=== PATIENT | male | born 1940 | race Hispanic/Latino ===

== ENCOUNTER 2019-03-04 08:48 | Inpatient (IN) | payer MEDICARE ==
[2019-03-01 12:10] LABS: BASOPHILS % 0.2 % (0.0-1.0); EOSINOPHILS # (AUTO) 0.1 (0.0-0.4); HEMATOCRIT 34.2 % (38.2-49.6); HEMOGLOBIN 11.6 g/dL (14.0-18.0); LYMPHOCYTES # (AUTO) 1.6 (1.0-3.2); LYMPHOCYTES % 32.1 % (18.0-39.1); MEAN CORPUSCULAR HEMOGLOBIN 33.2 pg (28-32); MEAN CORPUSCULAR HGB CONC 33.9 g/dL (31-35); MONOCYTES # (AUTO) 0.7 (0.2-0.8); MONOCYTES % 13.1 % (4.4-11.3); NEUTROPHILS # (AUTO) 2.6 (2.1-6.9); NEUTROPHILS % 52.4 % (38.7-80.0); PLATELET COUNT 300 x10e3/uL (140-360); RED BLOOD COUNT 3.49 x10e6/uL (4.3-5.7); RED CELL DISTRIBUTION WIDTH 12.9 % (11.7-14.4)
--- NOTE | 2019-03-01 15:15 | Diagnostic Imaging Report ---
EXAMINATION: CHEST 2 VIEWS INDICATION: Preoperative COMPARISON: None FINDINGS: TUBES and LINES: None. LUNGS: The lungs are well-inflated. Mild patchy opacity at the left lung base. Likely biapical emphysematous changes. PLEURA: No pleural effusion or pneumothorax. HEART AND MEDIASTINUM: The cardiomediastinal silhouette is normal in size. Atherosclerotic calcifications involve the thoracic aorta. BONES AND SOFT TISSUES: No acute fracture. Likely posttraumatic deformity of the left fifth posterior rib. Degenerative changes of the visualized spine. UPPER ABDOMEN: No free air under the diaphragm. IMPRESSION: No focal pneumonia or pulmonary edema. Patchy opacity at the left lung base, likely subsegmental atelectasis. Signed by: Cameron Snyder MD on 03/01/2019 3:12 PM
[~2019-03-04] VITALS: Ht 175.3 cm; Wt 79.8 kg
[~2019-03-04 08:48] MED LIST: ARICEPT5 MG PO; ASP325TEC PO; AZITHROMYCIN500 MG PO; Albuterol Sulf NEB; CEFUROXIME500 MG PO; CRESTOR10 MG PO; DOXAZOSIN MESYLA2 MG PO; Ipratropium Bromide NEB; MULTI-VITAMIN1 EACH; NORVASC5 MG PO; OMEPRAZOLE20 MG; PANTOPRAZOLE SO40 MG PO; PEPCID; RANITIDINE HCL150 MG PO; ST. JOSEPH ASPI81 MG PO; SYMBICORT 80-10.2 GM INH; ULTRAM 50MG50 MG PO; VITAMIN D1000 UNI1 PO; XARELTO20 MG PO; ZANTAC; ZOCOR20 MG PO; [UNRECOGNIZED DRUG - OTHER]
--- OUTSIDE RECORDS SUMMARY | 2019-03-04 08:51 | XMS REPORT ---
Author Author Danuta Whitmore Organization [employer] Address Unknown Phone Unavailable Care Team Providers Care Contractor Field Hauling Name Role Phone Danuta Whitmore CP Unavailable Allergies, Adverse Reactions, Alerts Substance Reaction Event Type Sulfur Info Not Available Drug Allergy Problems Problem Type Condition Code Onset Dates Condition Status Problem IPF (idiopathic pulmonary fibrosis) J84.112 Active Assessment Rheumatoid arthritis of multiple sites without organ or system involvement with positive rheumatoid factor M05.79 Active Problem Rheumatoid arthritis of multiple sites without organ or system involvement with positive rheumatoid factor M05.79 Active Assessment Counseling NOS Z71.9 Active Assessment High risk medication use Z79.899 Active Assessment IPF (idiopathic pulmonary fibrosis) J84.112 Active Medications Medication Code System Code Instructions Start Date End Date Status Dosage Multivitamin Adult [facility] 85679086351 - Orally Active not defined Hydroxychloroquine Sulfate [facility] 41202398961 200 MG Orally Once a day January 13, 2018 Active 1.5 tablet with food or milk Pantoprazole Sodium [facility] 36422640543 40 MG Orally Once a day Active 1 tablet Sucralfate [facility] 40576008355 1 GM Orally Twice a day Active 1 tablet at bedtime on an empty stomach before meals Ranitidine HCl [facility] 99711415012 150 MG Orally Once a day Active 1 capsule at bedtime Tamsulosin HCl [facility] 39868117095 0.4 MG Orally Once a day Active 1 capsule Results No Known Results Summary Purpose [employer] Submission
--- OUTSIDE RECORDS SUMMARY | 2019-03-04 08:51 | XMS REPORT ---
Author Author Danuta Whitmore Organization [employer] Address Unknown Phone Unavailable Care Team Providers Care Weblogic Administrator Name Role Phone Danuta Whitmore CP Unavailable Allergies, Adverse Reactions, Alerts Substance Reaction Event Type Sulfur Info Not Available Drug Allergy Problems Problem Type Condition Code Onset Dates Condition Status Assessment Anemia of chronic disease D63.8 Active Problem Rheumatoid arthritis of multiple sites without organ or system involvement with positive rheumatoid factor M05.79 Active Problem IPF (idiopathic pulmonary fibrosis) J84.112 Active Problem Anemia of chronic disease D63.8 Active Assessment IPF (idiopathic pulmonary fibrosis) J84.112 Active Assessment Counseling NOS Z71.9 Active Assessment Rheumatoid arthritis of multiple sites without organ or system involvement with positive rheumatoid factor M05.79 Active Assessment High risk medication use Z79.899 Active Medications Medication Code System Code Instructions Start Date End Date Status Dosage Ranitidine HCl [facility] 41924404719 150 MG Orally Once a day Active 1 capsule at bedtime Multivitamin Adult [facility] 05903444328 - Orally Active not defined Sucralfate ND 13288016625 1 GM Orally Twice a day Active 1 tablet at bedtime on an empty stomach before meals Tamsulosin HCl ND 14753884990 0.4 MG Orally Once a day Active 1 capsule Hydroxychloroquine Sulfate [facility] 42921542414 200 MG Orally Once a day Jul 08, 2018 Active 1.5 tablet with food or milk Pantoprazole Sodium [facility] 77440675371 40 MG Orally Once a day Active 1 tablet Vital Signs Date/Time: March 10, 2018 Weight 164.0 lbs Blood Pressure Diastolic 77 mm Hg Blood Pressure Systolic 124 mm Hg Results No Known Results Summary Purpose [employer] Submission
--- OUTSIDE RECORDS SUMMARY | 2019-03-04 08:51 | XMS REPORT | Continuity of Care Document ---
Author Author [employer] Organization [employer] Address Unknown Phone Unavailable Care Team Providers Care [employer] Name Role Phone [facility] [employer] Information Nan[employer] Unavailable Unavailable Problems Problem Status Onset Date Classification Date Reported Comments Source 1ST NIGHT - 89651 Active 12/14/2018 [facility] DIZZINESS Active 09/18/2015 [facility] TIA Resolved 02/28/2015 Problem 12/18/2018 [facility] [place] (Confirmed) Resolved 09/18/2000 Problem 12/18/2018 [facility] IPF Active Problem 09/09/2018 Danuta Naedelm Rheumatoid arthritis of multiple sites without organ or system involvement with positive rheumatoid factor Active Problem 09/09/2018 [facility]rir[facility] NOS Active Diagnosis 09/09/2018 Danuta Naedelm High risk medication use Active Diagnosis 09/09/2018 Danuta Naedelm Anemia of chronic disease Active Diagnosis 09/09/2018 Danuta Najam Cervicalgia Active Diagnosis 09/09/2018 Danuta Najam Acid reflux Resolved Problem 12/18/2018 [facility] COPD Resolved Problem 12/18/2018 [facility] Hypertension Active Problem 12/18/2018 [facility] Medications Medication Details Route Status Patient Instructions Ordering Provider Order Date Source Hydroxychloroquine Sulfate 1.5 tablet with food or milk Orally Active 200 MG Orally Once a day Najam 07/08/2018 Danuta Najam Hydroxychloroquine Sulfate 1.5 tablet with food or milk Orally Active 200 MG Orally Once a day Najam 06/09/2018 Danuta Najam Hydroxychloroquine Sulfate 1.5 tablet with food or milk Orally Active 200 MG Orally Once a day Najam 01/13/2018 Danuta Naedelm meclizine 25 mg oral tablet 25 mg, PO, TID, PRN Dizziness, # 21 tab, 0 Refill(s) No Longer Active 09/19/2015 [facility] lisinopril 10 mg oral tablet 10 mg=1 tab, PO, Daily, # 30 tab, 1 Refill(s) Active 09/19/2015 [facility] Aspirin 81 MG Enteric Coated Tablet 81 mg=1 tab, PO, Daily, # 100 tab, 0 Refill(s) Active 09/19/2015 [facility] Meclizine 25 mg, 1 tab, Route: PO, Drug form: TAB, TID, Dosing Weight 79.545, kg, PRN Dizziness, Start date: 09/19/15 10:26:00, Duration: 30 day, Stop date: 10/19/15 10:25:00Notes: (Same as: Antivert) Inactive 09/19/2015 [facility] Aspirin 81 MG Enteric Coated Tablet 81 mg, 1 tab, Route: PO, Drug form: ECTAB, Daily, kg, Start date: 09/18/15 20:00:00, Duration: 30 day, Stop date: 10/18/15 9:00:00Notes: Do not crush or chew. (Same As: Ecotrin) No Longer Active 09/19/2015 [facility] ProAir HFA 1 - 2 puffs, PO, TID, # 1 ea, 0 Refill(s) Active 09/19/2015 [facility] Lisinopril 10 mg, 1 tab, Route: PO, Drug form: TAB, Daily, kg, Start date: 09/18/15 15:19:00, Duration: 30 day, Stop date: 10/18/15 9:00:00Notes: (Same as: Prinivil, Zestril) No Longer Active 09/18/2015 [facility] Zofran 4 mg, 2 mL, Route: IV, Drug form: INJ, Q8H, kg, PRN Nausea, Start date: 09/18/15 13:05:00, Duration: 30 day, Stop date: 10/18/15 13:04:00Notes: (Same as: Zofran) MEDICATION WASTE Product Size: 4 mg Product Wasted: ___ mg No Longer Active 09/18/2015 [facility] 09/01 NS 1,000 mL 1,000 mL, Rate: 75 ml/hr, Infuse over: 13.3 hr, Route: IV, Total Volume: 1,000, Start date: 09/18/15 13:04:00, Duration: 30 day, Stop date: 10/18/15 13:03:00 No Longer Active 09/18/2015 [facility] Ondansetron 4 mg, 2 mL, Route: IVP, Drug form: INJ, Q6H, kg, PRN Nausea & Vomiting, Start date: 09/18/15 12:12:00, Duration: 30 day, Stop date: 10/18/15 12:11:00Notes: (Same as: Antione) MEDICATION WASTE Product Size: 4 mg Product Wasted: ___ mg Inactive 09/18/2015 [facility] Docusate 100 mg, 1 cap, Route: PO, Drug form: CAP, BID, kg, PRN Constipation, Start date: 09/18/15 12:12:00, Duration: 30 day, Stop date: 10/18/15 12:11:00Notes: (Same as: Colace) (Do Not Crush) No Longer Active 09/18/2015 [facility] Acetaminophen 650 mg, 2 tab, Route: PO, Drug form: TAB, Q4H, kg, PRN Pain 1-3/Temp > 100.4 F, Start date: 09/18/15 12:12:00, Duration: 30 day, Stop date: 10/18/15 12:11:00Notes: Do not exceed 4 gm/day. (Same as: Tylenol) No Longer Active 09/18/2015 [facility] Protonix 40 mg, Route: IVP, ONCE, kg, Priority: STAT, Start date: 09/18/15 12:11:00, Stop date: 09/18/15 12:11:00 Inactive 09/18/2015 [facility] Antivert 50 mg, Route: PO, Drug form: TAB, ONCE, kg, Priority: STAT, Start date: 09/18/15 8:49:00, Stop date: 09/18/15 8:49:00 Inactive 09/18/2015 [facility] Sodium Chloride 0.154 MEQ/ML Injectable Solution 500 mL, 500 ml/hr, Infuse Over: 1 Hour, Route: IV, ONCE, Priority: STAT, kg, Start date: 09/18/15 6:49:00, Duration: 1 doses or times, Stop date: 09/18/15 6:49:00 Inactive 09/18/2015 [facility] Saline Flush 0.9% 10 mL, Route: IVP, Drug Form: INJ, kg, PRN, PRN Line Flush, Start date: 09/18/15 6:49:00, Duration: 30 day, Stop date: 10/18/15 6:48:00Notes: (Same as: BD Posiflush) No Longer Active 09/18/2015 [facility] Multivitamin Adult not defined Orally Active - Orally Najam Danuta Najam Pantoprazole Sodium 1 tablet Orally Active 40 MG Orally Once a day Najam Danuta Najam Sucralfate 1 tablet at bedtime on an empty stomach before meals Orally Active 1 GM Orally Twice a day Najam Danuta Najam Ranitidine HCl 1 capsule at bedtime Orally Active 150 MG Orally Once a day Najam Danuta Najam Tamsulosin HCl 1 capsule Orally Active 0.4 MG Orally Once a day Najam Danuta Najam Allergies, Adverse Reactions, Alerts Substance Category Reaction Severity Reaction type Status Date Reported Comments Source Sulfur Adverse Reaction Info Not Available Adverse Reaction Active 09/08/2018 Danuta Najam sulfa drugs Assertion Drug allergy Active [facility] Immunizations No Data Provided for This Section Results Order Name Results Value Reference Range Date Interpretation Comments Source CARDIAC ENZYMES Troponin-I <0.02 0.00 - 0.40 09/19/2015 [facility] CARDIAC ENZYMES CK MB <0.5 0.5 - 3.6 09/19/2015 [facility] CARDIAC ENZYMES Total CK 40 12 - 191 09/19/2015 [facility] CARDIAC ENZYMES CK MB Index <1.2 0.0 - 2.5 09/19/2015 [facility] CHEM PANEL Creatinine Lvl 1.02 0.50 - 1.40 09/19/2015 [facility] CHEM PANEL eGFR 71 09/19/2015 Result Comment: The eGFR is calculated using the CKD-EPI formula. In most young, healthy individuals the eGFR will be >90 mL/min/1.73m2. The eGFR declines with age. An eGFR of 60-89 may be normal in some populations, particularly the elderly, for whom the CKD-EPI formula has not been extensively validated. Use of the eGFR is not recommended in the following populations:

Individuals with unstable creatinine concentrations, including patients and those with serious co-morbid conditions.

Patients with extremes in muscle mass or diet.

The data above are obtained from the National Kidney Disease Education Program (NKDEP) which additionally recommends that when the eGFR is used in patients with extremes of body mass index for purposes of drug dosing, the eGFR should be multiplied by the estimated BMI. [facility] CHEM PANEL Sodium Lvl 140 135 - 145 09/19/2015 [facility] CHEM PANEL Chloride Lvl 105 95 - 109 09/19/2015 [facility] CHEM PANEL Potassium Lvl 3.5 3.5 - 5.1 09/19/2015 [facility] CHEM PANEL Calcium Lvl 8.3 8.5 - 10.5 09/19/2015 [facility] CHEM PANEL CO2 30 24 - 32 09/19/2015 [facility] CHEM PANEL Glucose Lvl 111 70 - 99 09/19/2015 [facility] CHEM PANEL BUN 19 7 - 22 09/19/2015 [facility] CHEM PANEL AGAP 8.5 10.0 - 20.0 09/19/2015 [facility] HEMATOLOGY Platelet 236 133 - 450 09/19/2015 [facility] HEMATOLOGY MPV 8.0 7.4 - 10.4 09/19/2015 [facility] HEMATOLOGY RBC 3.77 4.70 - 6.10 09/19/2015 [facility] Hgb 12.6 14.0 - 18.0 09/19/2015 [facility] HEMATOLOGY WBC 5.0 3.7 - 10.4 09/19/2015 [facility] MCH 33.3 27.0 - 31.0 09/19/2015 [facility] Hct 37.1 42.0 - 54.0 09/19/2015 [facility] MCV 98.4 80.0 - 94.0 09/19/2015 [facility] MCHC 33.8 32.0 - 36.0 09/19/2015 [facility] HEMATOLOGY RDW 13.2 11.5 - 14.5 09/19/2015 [facility] HEMATOLOGY Eosinophils # 0.1 0.0 - 0.5 09/19/2015 [facility] HEMATOLOGY Monocytes # 0.5 0.0 - 0.8 09/19/2015 [facility] HEMATOLOGY Segs 54.7 45.0 - 75.0 09/19/2015 [facility] HEMATOLOGY Monocytes 10.4 2.0 - 12.0 09/19/2015 [facility] HEMATOLOGY Basophils 0.5 0.0 - 1.0 09/19/2015 [facility] HEMATOLOGY Eosinophils 2.2 0.0 - 4.0 09/19/2015 [facility] HEMATOLOGY Lymphocytes 32.2 20.0 - 40.0 09/19/2015 [facility] HEMATOLOGY Segs-Bands # 2.8 1.5 - 8.1 09/19/2015 [facility] HEMATOLOGY Lymphocytes # 1.6 1.0 - 5.5 09/19/2015 [facility] LIPIDS CHD Risk 4.53 4.00 - 7.30 09/19/2015 [facility] LIPIDS VLDL 28 09/19/2015 [facility] LIPIDS LDL (Calculated) 85 <=99 mg/dL 09/19/2015 [facility] LIPIDS Trig 138 <=149 mg/dL 09/19/2015 [facility] LIPIDS HDL 32 >=61 mg/dL 09/19/2015 [facility] LIPIDS Chol 145 <=199 mg/dL 09/19/2015 [facility] CARDIAC ENZYMES Troponin-I <0.02 0.00 - 0.40 09/18/2015 [facility] CARDIAC ENZYMES CK MB <0.5 0.5 - 3.6 09/18/2015 [facility] CARDIAC ENZYMES Total CK 39 12 - 191 09/18/2015 [facility] CARDIAC ENZYMES CK MB Index <1.3 0.0 - 2.5 09/18/2015 [facility] SPECIAL CHEMISTRY Hgb A1C 5.6 <=5.6 % 09/18/2015 [facility] ANEMIA STUDY Vitamin B12 Lvl 690 254 - 1320 09/18/2015 [facility] CARDIAC ENZYMES CK-MB INDEX 18.6 0.0 - 2.5 09/18/2015 [facility] CARDIAC ENZYMES Troponin-I <0.02 0.00 - 0.40 09/18/2015 [facility] CARDIAC ENZYMES Total CK <7 12 - 191 09/18/2015 [facility] CARDIAC ENZYMES CK MB 1.3 0.5 - 3.6 09/18/2015 [facility] CHEM PANEL Magnesium Lvl 1.9 1.8 - 2.4 09/18/2015 [facility] URINE AND STOOL UA Urobilinogen <=1.0 mg/dL 0.1 - 1.0 09/18/2015 [facility] URINE AND STOOL UA Turbidity Slight *ABN* (09/18/15 8:44 AM) Clear 09/18/2015 [facility] URINE AND STOOL UA Spec Grav 1.011 <=1.030 09/18/2015 [facility] URINE AND STOOL UA Protein Negative mg/dL Negative mg/dL 09/18/2015 [facility] URINE AND STOOL UA Ketones Negative mg/dL Negative mg/dL 09/18/2015 [facility] URINE AND STOOL UA Glucose Negative mg/dL Negative mg/dL 09/18/2015 [facility] URINE AND STOOL UA Blood Negative (09/18/15 8:44 AM) Negative 09/18/2015 [facility] URINE AND STOOL UA Bili Negative *NA* (09/18/15 8:44 AM) Negative 09/18/2015 [facility] URINE AND STOOL UA Nitrite Negative (09/18/15 8:44 AM) Negative 09/18/2015 [facility] URINE AND STOOL UA Leuk Est Negative (09/18/15 8:44 AM) Negative 09/18/2015 [facility] URINE AND STOOL UA WBC 1 0 - 5 09/18/2015 [facility] URINE AND STOOL UA RBC 2 0 - 2 09/18/2015 [facility] URINE AND STOOL UA Mucus Few /LPF None Seen /LPF 09/18/2015 [facility] URINE AND STOOL UA Sq Epi None Seen 09/18/2015 [facility] URINE AND STOOL UA Color Ltyellow 09/18/2015 [facility] URINE AND STOOL UA pH >=9.0 *ABN* (09/18/15 8:44 AM) 5.0 - 8.0 09/18/2015 [facility] CARDIAC ENZYMES BNP 46 <=100 pg/mL 09/18/2015 [facility] CHEM PANEL eGFR 86 09/18/2015 Result Comment: The eGFR is calculated using the CKD-EPI formula. In most young, healthy individuals the eGFR will be >90 mL/min/1.73m2. The eGFR declines with age. An eGFR of 60-89 may be normal in some populations, particularly the elderly, for whom the CKD-EPI formula has not been extensively validated. Use of the eGFR is not recommended in the following populations:

Individuals with unstable creatinine concentrations, including patients and those with serious co-morbid conditions.

Patients with extremes in muscle mass or diet.

The data above are obtained from the National Kidney Disease Education Program (NKDEP) which additionally recommends that when the eGFR is used in patients with extremes of body mass index for purposes of drug dosing, the eGFR should be multiplied by the estimated BMI. [facility] CHEM PANEL Bili Total 0.7 0.2 - 1.3 09/18/2015 [facility] CHEM PANEL AGAP 9.0 10.0 - 20.0 09/18/2015 [facility] CHEM PANEL AST 18 0 - 37 09/18/2015 [facility] CHEM PANEL Alk Phos 80 39 - 136 09/18/2015 [facility] CHEM PANEL Potassium Lvl 4.0 3.5 - 5.1 09/18/2015 [facility] CHEM PANEL Chloride Lvl 104 95 - 109 09/18/2015 [facility] CHEM PANEL Sodium Lvl 138 135 - 145 09/18/2015 [facility] CHEM PANEL BUN 14 7 - 22 09/18/2015 [facility] CHEM PANEL Albumin Lvl 3.8 3.5 - 5.0 09/18/2015 [facility] CHEM PANEL Total Protein 7.6 6.4 - 8.4 09/18/2015 [facility] CHEM PANEL Creatinine Lvl 0.82 0.50 - 1.40 09/18/2015 [facility] CHEM PANEL A/G Ratio 1.0 0.7 - 1.6 09/18/2015 [facility] CHEM PANEL Globulin 3.8 2.0 - 4.0 09/18/2015 [facility] CHEM PANEL B/C Ratio 17 6 - 25 09/18/2015 [facility] CHEM PANEL CO2 29 24 - 32 09/18/2015 [facility] CHEM PANEL ALT 24 0 - 65 09/18/2015 [facility] CHEM PANEL Calcium Lvl 8.9 8.5 - 10.5 09/18/2015 [facility] CHEM PANEL Glucose Lvl 132 70 - 99 09/18/2015 [facility] HEMATOLOGY Segs 82.1 45.0 - 75.0 09/18/2015 [facility] HEMATOLOGY Monocytes 4.0 2.0 - 12.0 09/18/2015 [facility] HEMATOLOGY Basophils 0.3 0.0 - 1.0 09/18/2015 [facility] HEMATOLOGY Segs-Bands # 6.7 1.5 - 8.1 09/18/2015 [facility] HEMATOLOGY Eosinophils 0.4 0.0 - 4.0 09/18/2015 [facility] HEMATOLOGY Lymphocytes # 1.1 1.0 - 5.5 09/18/2015 [facility] HEMATOLOGY Lymphocytes 13.2 20.0 - 40.0 09/18/2015 [facility] HEMATOLOGY Monocytes # 0.3 0.0 - 0.8 09/18/2015 [facility] HEMATOLOGY PTT 29.0 22.9 - 35.8 09/18/2015 [facility] HEMATOLOGY INR 1.05 0.85 - 1.17 09/18/2015 [facility] PT 14.0 12.0 - 14.7 09/18/2015 [facility] MCH 32.9 27.0 - 31.0 09/18/2015 [facility] WBC 8.2 3.7 - 10.4 09/18/2015 [facility] RBC 4.23 4.70 - 6.10 09/18/2015 [facility] MCV 98.1 80.0 - 94.0 09/18/2015 [facility] Hgb 13.9 14.0 - 18.0 09/18/2015 [facility] Hct 41.5 42.0 - 54.0 09/18/2015 [facility] MCHC 33.5 32.0 - 36.0 09/18/2015 [facility] RDW 12.9 11.5 - 14.5 09/18/2015 [facility] Platelet 269 133 - 450 09/18/2015 [facility] MPV 7.7 7.4 - 10.4 09/18/2015 [facility] Pathology Reports No Data Provided for This Section Diagnostic Reports Report Value Date Source Chest 2 views DX EXAM: XR CHEST 2 VIEWS DATE: 12/22/2016 2:08 PM CDT INDICATION: R05 Cough COMPARISON: 09/18/2015 TECHNIQUE: PA and lateral chest radiographs FINDINGS: Irregular areas of parenchymal opacity are seen in the left lower lung laterally, best seen on the PA view. These appear slightly more prominent than on the prior exam. Other areas of linear scarring are seen within the lung bases along with some fine reticular lung markings in the right costophrenic angle region, stable from the prior exam. Mild blunting of the costophrenic angles is likely from pleural scarring and/or trace effusions, stable from the prior exam. Atherosclerotic calcifications are again seen in the aortic arch. Cardiac silhouette is normal in size. Degenerative changes are again seen in the thoracic spine. IMPRESSION: 1. Irregular opacities over the left lower lung laterally, likely from scarring. However, they have increased from the prior exam. Superimposed pneumonia is not excluded. 2. Stable findings reticular lung markings in the right costophrenic angle along with areas of scarring in both lower lungs likely represent scarring and/or interstitial fibrosis. 4. Small pleural effusions versus pleural scarring in the costal phrenic angle regions, stable from the prior exam. 4. Stable atherosclerotic vascular disease of the aortic arch. 5. Degenerative changes in the thoracic spine with mild dextroscoliosis. RECOMMENDATION: CT scan of the chest with high-resolution imaging for further evaluation of the above-mentioned findings. 12/22/2016 [facility] Brain wo contrast MRI MRI BRAIN W/O CONTRAST: TECHNIQUE: Multiplanar imaging of the brain was performed. No intravenous contrast was administered. COMPARISON: CT head 09/18/2015 CLINICAL HX: Ataxia FINDINGS: There are no extra-axial fluid collections, intra-axial masses or midline shift. Increased signal in the periventricular white matter and deep cerebral white matter is likely related to chronic ischemic change from small vessel disease. No acute infarct is noted. There is mild cerebral atrophy. The pituitary, brain stem and the IACs are unremarkable in appearance. The usual flow voids of the carotid and vertebrobasilar system are preserved. Extensive sinus disease is present in the left maxillary sinus. IMPRESSION: Cerebral atrophy. 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 Extensive sinus disease is noted in the left maxillary sinus. SL:13 09/19/2015 [facility] Carotid artery Doppler bilat CAROTID ARTERY DOPPLER US HX: Syncope and collapse TECHNIQUE: Coffman-scale, color Doppler and spectral Doppler of the carotid arteries was performed. Any reported ICA stenoses indirectly reference the distal internal carotid diameter as the denominator for the stenosis measurement, utilizing consensus panel criteria. FINDINGS: Vertebral artery flow is antegrade. RIGHT: Atherosclerotic plaque formation noted at the level of the carotid bifurcation bilaterally with some extension into the proximal portion of the right internal carotid artery. No significant stenosis by coffman scale or Doppler velocity criteria. ICA PSV 87 cm/sec CCA PSV 113 cm/sec ICA/CCA ratio 0.7 Vertebral flow is 50 cm/sec External carotid artery is patent. LEFT: Atherosclerotic plaque similar to that seen on the right no slightly less severe. ICA PSV 71 cm/sec CCA PSV 142 cm/sec ICA/CCA ratio 0.5 Vertebral flow is 69 cm/sec. External carotid artery is patent. IMPRESSION: 1. RIGHT: ICA stenosis <50% by velocity criteria. 1. LEFT: ICA stenosis <50% by velocity criteria. Consensus panel Doppler US criteria for diagnosis of ICA stenosis: Stenosis (%) ICA PSV (cm/sec) ICA/CCA ratio <50 <125 <2.0 50-69 125-230 2.0-4.0 >70 but less than >230 >4.0 near occlusion Near occlusion High, low, or Variable undetectable SL: 12 09/18/2015 [facility] Brain wo contrast CT Examination: CT scan of the brain without contrast. HISTORY: Headache with Dizziness and Giddiness COMPARISON: None available. DLP: [id number] TECHNIQUE: Multiple axial CT images of the brain were obtained without the administration of intravenous contrast. FINDINGS: Age-related involutional changes of the brain parenchyma are seen. Chronic microvascular ischemic changes are present. No acute intracranial hemorrhage, mass effect, midline shift, or hydrocephalus is seen. There are no extra-axial fluid collections. The visualized paranasal sinuses and mastoid air cells are well-aerated. The optic globes and retrobulbar soft tissues are unremarkable. IMPRESSION: No acute intracranial abnormality. SL: 16 09/18/2015 [facility] Chest 1view DX Chest one view: COMPARISON: No priors FINDINGS: Limited AP portable study. There is blunting of left costophrenic sulcus likely related to pleural parenchymal scarring and pleural thickening. No significant effusion is evident. Lungs are otherwise grossly clear. Cardiac silhouette size is within normal range. Aortic arch calcification. Thoracic spondylosis. Various EKG leads and wires project over the patient's chest. SL:13 09/18/2015 [facility] Consultation Notes No Data Provided for This Section Discharge Summaries No Data Provided for This Section History and Physicals No Data Provided for This Section Vital Signs Vital Sign Value Date Comments Source Height 69 09/08/2018 Danuta Naale Diastolic (mm Hg) 78 09/08/2018 Danuta Naedelm Systolic (mm Hg) 141 09/08/2018 Danutasriram Mayberrym Weight 171.6 09/08/2018 Danut[facility]riram [facility]berry[facility] Height 69 06/09/2018 Danuta Naedelm Diastolic (mm Hg) 66 06/09/2018 Danuta Naedelm Systolic (mm Hg) 118 06/09/2018 [facility]ut[facility]riram [facility] Weight 171.4 06/09/2018 Danuta Najam Weight 164.0 03/10/2018 Danuta Whitmore Diastolic (mm Hg) 77 03/10/2018 Danuta Naedelm Systolic (mm Hg) 124 03/10/2018 Danuta Naedelm Systolic (mm Hg) 151 09/19/2015 [facility] Diastolic (mm Hg) 74 09/19/2015 [facility] Respitory Rate 18 09/19/2015 [facility] Heart Rate 75 09/19/2015 [facility] Temperature Oral (F) 98.3 F 09/19/2015 [facility] Respitory Rate 18 09/19/2015 [facility] Temperature Oral (F) 98.6 F 09/19/2015 [facility] Heart Rate 63 09/19/2015 [facility] Respitory Rate 16 09/19/2015 [facility] Systolic (mm Hg) 124 09/19/2015 [facility] Diastolic (mm Hg) 63 09/19/2015 [facility] Heart Rate 59 09/19/2015 [facility] Temperature Oral (F) 99.2 F 09/19/2015 [facility] Systolic (mm Hg) 113 09/19/2015 [facility] Diastolic (mm Hg) 58 09/19/2015 [facility] Weight 79.545 09/18/2015 [facility] BMI Calculated 25.9 09/18/2015 [facility] Height 175.26 cm 09/18/2015 [facility] Encounters Location Location Details Encounter Type Encounter Number Reason For Visit Attending Provider ADM Date DC Date Status Source [facility] OBS Observation Patient [id number] Kishor Aguila 09/18/2015 09/19/2015 [facility] [id number] Lolita Panda 12/22/2016 12/23/2016 [facility] Outpatient [id number] Nickie Livingston 12/16/2018 12/16/2018 [facility] Procedures Procedure Code Date Perfomer Comments Source Appendectomy [id number] [facility] Excision of segment of right middle lobe [id number] [facility] Appendectomy [id number] [facility] Excision of segment of right middle lobe [id number] [facility] Assessment and Plan Assessment and Plan Date Source Extracted from:Title: Neurology Progress Note Author: Mally Haider MD Date: 09/19/15 Impression and Plan 1. Dizziness, likely Peripheral vertigo - better - possibly related to maxillary sinusitis 2. Hypertension. 3. Possible orthostatic hypotension in setting of dehydration, now resolved. 4. Left maxillary sinusitis PLAN Monitor this patient on telemetry. Patient likely had episodes of intermittent peripheral vertigo which has now resolved. There may have been a component of orthostatic hypotension; however, patient received IV fluids while in the emergency room and his orthostatic vital signs have not shown significant drop in blood pressure. Meclizine 25 mg q.8 hourly as needed for vertigo. reviewed MRI of the brain images and d/w the pt. ok to d/c from neuro standpoint. Thank you very much for this opportunity to participate in the care of your patient. 09/19/2015 [facility] Plan of Care No Data Provided for This Section Social History Social History Date Source Social History TypeResponse Alcohol Never Smoking Status Never smoker; Exposure to Tobacco Smoke None; Cigarette Smoking Last 365 Days No; Reg Smoking Cessation Counseling No entered on: 09/18/15 09/18/2015 [facility] Social History TypeResponse Alcohol Never Smoking Status Never smoker; Exposure to Tobacco Smoke None; Cigarette Smoking Last 365 Days No; Reg Smoking Cessation Counseling No 09/18/2015 PAUL Whitman Family History No Data Provided for This Section Advance Directives No Data Provided for This Section Functional Status No Data Provided for This Section
--- OUTSIDE RECORDS SUMMARY | 2019-03-04 08:51 | XMS REPORT ---
Author Author Danuta Whitmore Organization [employer] Address Unknown Phone Unavailable Care Team Providers Care Title Clerk Automobile Name Role Phone Danuta Whitmore CP Unavailable [...] Date End Date Status Dosage Ranitidine HCl [facility] 83398255650 150 MG Orally Once a day Active 1 capsule at bedtime Pantoprazole Sodium [facility] 89074721882 40 MG Orally Once a day Active 1 tablet Hydroxychloroquine Sulfate [facility] 01597773559 200 MG Orally Once a day Jun 09, 2018 Inactive 1.5 tablet with food or milk Multivitamin Adult [facility] 84951523356 - Orally Active not defined Sucralfate [facility] 26205382419 1 GM Orally Twice a day Active 1 tablet at bedtime on an empty stomach before meals Tamsulosin HCl [facility] 11667078987 0.4 MG Orally Once a day Active 1 capsule Vital Signs Date/Time: Jun 09, 2018 Height 69 in Blood Pressure Diastolic 66 mm Hg Blood Pressure Systolic 118 mm Hg Weight 171.4 lbs Results Name Result Date Reference Range Unit Abnormality Flag ESR (SED-RATE) ----ESR (SED-RATE) 21 [id number] <23 mm/hr CBC w/DIFF, PLATELET CT. ----PLATELET COUNT 287 [id number] 140-425 x10(3)/uL ----IMMATURE GRANULOCYTES 0.2 62614321 0.0-1.0 % ----MPV 9.4 59483553 8.6-12.1 fL ----POLYS 57.9 83131498 34.9-75.3 % ----RDW 12.3 33492413 12.2-15.3 % ----MCHC 34.8 79465061 31.7-35.3 gm/dL ----MCH 34.5 84809602 25.8-33.1 pg H ----MCV 99.2 58635103 78.0-98.0 fL H ----MONOS 11.9 68124376 3.5-13.2 % ----LYMPHS 28.6 03733401 14.0-51.8 % ----BASOS 0.2 44081914 0.0-1.0 % ----EOS 1.2 67144481 0.0-6.2 % ----WBC 4.97 83373298 3.66-10.60 x10(3)/uL ----RBC 3.59 64355576 3.94-5.76 x10(6)/uL L ----HGB 12.4 35755799 12.0-16.9 gm/dL ----HCT 35.6 51198694 34.6-49.6 % COMPREHENSIVE METABOLIC ----Chloride 101 06684080 96-108 mmol/L ----Potassium 4.9 20625174 3.5-5.5 mmol/L ----BUN 19 54977914 8-23 mg/dL ----CO2 24 74002535 22-29 mmol/L ----e-GFR 64 61149572 >or=60 mL/min ----e-GFR, 74 74898684 >or=60 mL/min ----Creatinine 1.09 48153486 0.67-1.31 mg/dL ----Alk Phos 75 21792920 40-156 U/L ----A/G Ratio 1.6 78648584 1.1-2.9 ----AST 18 26822059 <40 U/L ----Sodium 142 58550660 135-147 mmol/L ----Albumin 4.4 36132833 3.5-5.2 g/dL ----Calcium 9.4 90776023 8.6-10.4 mg/dL ----Bilirubin, Total 0.3 22848357 <1.2 mg/dL ----Globulin 2.7 70126991 1.7-3.7 g/dL ----Total Protein 7.1 35445664 5.9-8.4 g/dL ----ALT 11 03511681 <41 U/L ----Glucose 97 45646643 70-99 mg/dL Summary Purpose [employer] Submission
--- OUTSIDE RECORDS SUMMARY | 2019-03-04 08:51 | XMS REPORT ---
Author Author Danuta Whitmore Organization [employer] Address Unknown Phone Unavailable Care Team Providers Care Environmental Technology Professor Name Role Phone Danuta Whitmore CP Unavailable Allergies No Known Allergies Problems Problem Type Condition Code Onset Dates Condition Status Problem Rheumatoid arthritis of multiple sites without organ or system involvement with positive rheumatoid factor M05.79 Active Problem IPF (idiopathic pulmonary fibrosis) J84.112 Active Problem Anemia of chronic disease D63.8 Active Medications No Known Medications Results No Known Results Summary Purpose [employer] Submission
--- OUTSIDE RECORDS SUMMARY | 2019-03-04 08:51 | XMS REPORT ---
Author Author Danuta Whitmore Organization [employer] Address Unknown Phone Unavailable Care Team Providers Care Centrifugal Spinner Name Role Phone Danuta Whitmore CP Unavailable Allergies, Adverse Reactions, Alerts Substance Reaction Event Type Sulfur Info Not Available Drug Allergy Problems Problem Type Condition Code Onset Dates Condition Status Assessment Cervicalgia M54.2 Active Assessment Counseling NOS Z71.9 Active Assessment Anemia of chronic disease D63.8 Active Problem Rheumatoid arthritis of multiple sites without organ or system involvement with positive rheumatoid factor M05.79 Active Problem IPF (idiopathic pulmonary fibrosis) J84.112 Active Problem Anemia of chronic disease D63.8 Active Assessment High risk medication use Z79.899 Active Assessment IPF (idiopathic pulmonary fibrosis) J84.112 Active Assessment Rheumatoid arthritis of multiple sites without organ or system involvement with positive rheumatoid factor M05.79 Active Medications Medication Code System Code Instructions Start Date End Date Status Dosage Multivitamin Adult [facility] 61743758539 - Orally Active not defined Ranitidine HCl ND 71575636027 150 MG Orally Once a day Active 1 capsule at bedtime Sucralfate ND 99275847190 1 GM Orally Twice a day Active 1 tablet at bedtime on an empty stomach before meals Tamsulosin HCl ND 15831207597 0.4 MG Orally Once a day Active 1 capsule Pantoprazole Sodium [facility] 94532113713 40 MG Orally Once a day Active 1 tablet Vital Signs Date/Time: Sep 08, 2018 Height 69 in Blood Pressure Diastolic 78 mm Hg Blood Pressure Systolic 141 mm Hg Weight 171.6 lbs Results No Known Results Summary Purpose [employer] Submission
--- OUTSIDE RECORDS SUMMARY | 2019-03-04 08:52 | XMS REPORT | Summary of Care ---
Author Author [facility] Organization [facility] Address Unknown Phone Unavailable Encounter HQ Encntr_clifford(FIN) [id number] Date(s): 12/15/18 - 12/15/18 [facility] [address] [place] [address]- [phone] Discharge Disposition: Home or Self Care Attending Physician: Nickie Livingston MD Referring Physician: Nickie Livingston MD Vital Signs No data available for this section Problem List Condition Effective Dates Status Health Status Informant Acid Resolved reflux(Confirmed) COPD(Confirmed) Resolved Hypertension(Confirm Active ed) [place] (myocardial 09/18/00 Resolved infarction)(Confirme d) TIA(Confirmed) 02/28/15 Resolved Allergies, Adverse Reactions, Alerts Substance Reaction Severity Status sulfa drugs Active Medications No data available for this section Results No data available for this section Immunizations No data available for this section Procedures Procedure Date Related Diagnosis Body Site Status Appendectomy Completed Excision of segment of right middle lobe Completed Social History Social History Type Response Alcohol Never Smoking Status Never smoker; Exposure to Tobacco Smoke None; Cigarette Smoking Last 365 Days No; Reg Smoking Cessation Counseling No entered on: 09/18/15 Assessment and Plan No data available for this section
--- OUTSIDE RECORDS SUMMARY | 2019-03-04 08:52 | XMS REPORT ---
Author Author [facility] Address Unknown Phone Unavailable Care Team Providers Care Screening Tech Name Role Phone RAFIA HOANG Unavailable Unavailable Problems This patient has no known problems. Allergies, Adverse Reactions, Alerts This patient has no known allergies or adverse reactions. Medications This patient has no known medications. Encounters Start Date/Time End Date/Time Encounter Type Admission Type Attending [facility] Care Facility Care Department Encounter ID 2018-12-15 19:29:00 2018-12-15 19:29:00 Outpatient [id number] Results Test Description Test Time Test Comments Text Results Atomic Results Result Comments CHEST 2 VIEWS 2019-03-01 15:07:00 [place] [id number] Patient Name: LAY JOAQUIN MR #: [id number] : 1940 Age/Sex: 78/M Req #: [id number] Adm Physician: Ordered by: RAFIA HOANG MD Report #: [id number] Location: OR Room/Bed: Procedure: [id number] DX/CHEST 2 VIEWS Exam Date: 03/01/19 Exam Time: 1218 REPORT STATUS: Signed EXAMINATION: CHEST 2 VIEWS INDICATION: Preoperative COMPARISON: None FINDINGS: TUBES and LINES: None. LUNGS: The lungs are well-inflated. Mild patchy opacity at the left lung base. Likely biapical emphysematous changes. PLEURA: No pleural effusion or pneumothorax. HEART AND MEDIASTINUM: The cardiomediastinal silhouette is normal in size. Atherosclerotic calcifications involve the thoracic aorta. BONES AND SOFT TISSUES: No acute fracture. Likely posttraumatic deformity of the left fifth posterior rib. Degenerative changes of the visualized spine. UPPER ABDOMEN: No free air under the diaphragm. IMPRESSION: No focal pneumonia or pulmonary edema. Patchy opacity at the left lung base, likely subsegmental atelectasis. Signed by: Reji Snyder MD on 03/01/2019 3:12 PM Dictated By: REJI SNYDER MD 1512 Transcribed By: NITZA on 03/01/19 1512 COPY TO: RAFIA HOANG MD
--- OUTSIDE RECORDS SUMMARY | 2019-03-04 08:52 | XMS REPORT | Summary of Care ---
Author Author [facility] Organization [facility] Address Unknown Phone Unavailable Encounter CHASITY Douglas(SUSANA) [id number] Date(s): 09/18/15 - 09/19/15 [facility] [address] [place] [address]- [phone] Discharge Disposition: Home Attending Physician: Kishor Aguila MD Admitting Physician: Kishor Aguila MD Vital Signs 1 2 3 Most recent to oldest [Reference Range]: 175.26 cm (09/18/15 3:15 PM) Height 98.3 DegF (09/19/15 8:36 AM) 98.6 DegF (09/19/15 5:23 AM) 99.2 DegF *HI* (09/19/15 12:07 AM) Temperature Oral [96.4-99.1 DegF] 151/74 mmHg *HI* (09/19/15 8:36 AM) 124/63 mmHg (09/19/15 5:23 AM) 113/58 mmHg (09/19/15 12:07 AM) Blood Pressure [90-140/60-90 mmHg] 18 BRMIN (09/19/15 8:36 AM) 18 BRMIN (09/19/15 6:55 AM) 16 BRMIN (09/19/15 5:23 AM) Respiratory Rate [14-20 BRMIN] 75 bpm (09/19/15 8:36 AM) 63 bpm (09/19/15 5:23 AM) 59 bpm *LOW* (09/19/15 12:07 AM) Peripheral Pulse Rate [60-100 bpm] 79.545 kg (09/18/15 3:15 PM) Weight 25.9 m2 (09/18/15 3:15 PM) Body Mass Index Problem List Condition Effective Dates Status Health Status Informant Acid Resolved reflux(Confirmed) COPD(Confirmed) Resolved Hypertension(Confirm Active ed) [place] (myocardial 09/18/00 Resolved infarction)(Confirme d) TIA(Confirmed) 02/28/15 Resolved Allergies, Adverse Reactions, Alerts Substance Reaction Severity Status sulfa drugs Active Medications 1/2 NS 1,000 mL 1,000 mL, Rate: 75 ml/hr, Infuse over: 13.3 hr, Route: IV, Total Volume: 1,000, Start date: 09/18/15 13:04:00, Duration: 30 day, Stop date: 10/18/15 13:03:00 Start Date: 09/18/15 Stop Date: 09/19/15 Status: Discontinued acetaminophen 650 mg, 2 tab, Route: PO, Drug form: TAB, Q4H, kg, PRN Pain 1-3/Temp > 100.4 F, Start date: 09/18/15 12:12:00, Duration: 30 day, Stop date: 10/18/15 12:11:00 Notes: Do not exceed 4 gm/day. (Same as: Tylenol) Start Date: 09/18/15 Stop Date: 09/19/15 Status: Discontinued Antivert 50 mg, Route: PO, Drug form: TAB, ONCE, kg, Priority: STAT, Start date: 09/18/15 8:49:00, Stop date: 09/18/15 8:49:00 Start Date: 09/18/15 Stop Date: 09/18/15 Status: Completed aspirin 81 mg tablet, enteric coated 81 mg=1 tab, PO, Daily, # 100 tab, 0 Refill(s) Start Date: 09/19/15 Status: Ordered aspirin 81 mg tablet, enteric coated 81 mg, 1 tab, Route: PO, Drug form: ECTAB, Daily, kg, Start date: 09/18/15 20:00 :00, Duration: 30 day, Stop date: 10/18/15 9:00:00 Notes: Do not crush or chew.(Same As: Ecotrin) Start Date: 09/18/15 Stop Date: 09/19/15 Status: Discontinued docusate 100 mg, 1 cap, Route: PO, Drug form: CAP, BID, kg, PRN Constipation, Start date: 09/18/15 12:12:00, Duration: 30 day, Stop date: 10/18/15 12:11:00 Notes: (Same as: Colace) (Do Not Crush) Start Date: 09/18/15 Stop Date: 09/19/15 Status: Discontinued lisinopril 10 mg, 1 tab, Route: PO, Drug form: TAB, Daily, kg, Start date: 09/18/15 15:19:0 0, Duration: 30 day, Stop date: 10/18/15 9:00:00 Notes: (Same as: Prinivil, Zestril) Start Date: 09/18/15 Stop Date: 09/19/15 Status: Discontinued lisinopril 10 mg oral tablet 10 mg=1 tab, PO, Daily, # 30 tab, 1 Refill(s) Start Date: 09/19/15 Status: Ordered meclizine 25 mg, 1 tab, Route: PO, Drug form: TAB, TID, Dosing Weight 79.545, kg, PRN Dizz iness, Start date: 09/19/15 10:26:00, Duration: 30 day, Stop date: 10/19/15 10:2 5:00 Notes: (Same as: Antivert) Start Date: 09/19/15 Stop Date: 09/19/15 Status: Discontinued meclizine 25 mg oral tablet 25 mg, PO, TID, PRN Dizziness, # 21 tab, 0 Refill(s) Start Date: 09/19/15 Stop Date: 09/20/15 Status: Completed ondansetron 4 mg, 2 mL, Route: IVP, Drug form: INJ, Q6H, kg, PRN Nausea & Vomiting, Start date: 09/18/15 12:12:00, Duration: 30 day, Stop date: 10/18/15 12:11:00 Notes: (Same as: Zofran) MEDICATION WASTE Product Size: 4 mgProduct Was darlene: ___ mg Start Date: 09/18/15 Stop Date: 09/18/15 Status: Deleted ProAir HFA 1 - 2 puffs, PO, TID, # 1 ea, 0 Refill(s) Start Date: 09/18/15 Stop Date: 10/13/15 Status: Ordered Protonix 40 mg, Route: IVP, ONCE, kg, Priority: STAT, Start date: 09/18/15 12:11:00, Stop date: 09/18/15 12:11:00 Start Date: 09/18/15 Stop Date: 09/18/15 Status: Completed Saline Flush 0.9% 10 mL, Route: IVP, Drug Form: INJ, kg, PRN, PRN Line Flush, Start date: 09/18/15 6:49:00, Duration: 30 day, Stop date: 10/18/15 6:48:00 Notes: (Same as: BD Posiflush) Start Date: 09/18/15 Stop Date: 09/19/15 Status: Discontinued Sodium Chloride 0.9% (Bolus) IV 500 mL, 500 ml/hr, Infuse Over: 1 Hour, Route: IV, ONCE, Priority: STAT, kg, Sta rt date: 09/18/15 6:49:00, Duration: 1 doses or times, Stop date: 09/18/15 6:49: 00 Start Date: 09/18/15 Stop Date: 09/18/15 Status: Completed Zofran 4 mg, 2 mL, Route: IV, Drug form: INJ, Q8H, kg, PRN Nausea, Start date: 09/18/15 13:05:00, Duration: 30 day, Stop date: 10/18/15 13:04:00 Notes: (Same as: Zofran) MEDICATION WASTE Product Size: 4 mgProduct Was darlene: ___ mg Start Date: 09/18/15 Stop Date: 09/19/15 Status: Discontinued Results ELECTROLYTES 1 2 3 Most recent to oldest [Reference Range]: 140 mEq/L (09/19/15 2:19 AM) 138 mEq/L (09/18/15 6:51 AM) Sodium Lvl [135-145 mEq/L] 3.5 mEq/L (09/19/15 2:19 AM) 4.0 mEq/L (09/18/15 6:51 AM) Potassium Lvl [3.5-5.1 mEq/L] 105 mEq/L (09/19/15 2:19 AM) 104 mEq/L (09/18/15 6:51 AM) Chloride Lvl [95-109 mEq/L] 30 mEq/L (09/19/15 2:19 AM) 29 mEq/L (09/18/15 6:51 AM) CO2 [24-32 mEq/L] 8.5 mEq/L *LOW* (09/19/15 2:19 AM) 9.0 mEq/L *LOW* (09/18/15 6:51 AM) AGAP [10.0-20.0 mEq/L] CHEM PANEL 1 2 3 Most recent to oldest [Reference Range]: 1.02 mg/dL (09/19/15 2:19 AM) 0.82 mg/dL (09/18/15 6:51 AM) Creatinine Lvl [0.50-1.40 mg/dL] 71 mL/min/1.73m2 1 *NA* (09/19/15 2:19 AM) 86 mL/min/1.73m2 2 *NA* (09/18/15 6:51 AM) eGFR 19 mg/dL (09/19/15 2:19 AM) 14 mg/dL (09/18/15 6:51 AM) BUN [7-22 mg/dL] 17 (09/18/15 6:51 AM) B/C Ratio [6-25] 111 mg/dL *HI* (09/19/15 2:19 AM) 132 mg/dL *HI* (09/18/15 6:51 AM) Glucose Lvl [70-99 mg/dL] 7.6 g/dL (09/18/15 6:51 AM) Total Protein [6.4-8.4 g/dL] 3.8 g/dL (09/18/15 6:51 AM) Albumin Lvl [3.5-5.0 g/dL] 3.8 g/dL (09/18/15 6:51 AM) Globulin [2.0-4.0 g/dL] 1.0 (09/18/15 6:51 AM) A/G Ratio [0.7-1.6] 8.3 mg/dL *LOW* (09/19/15 2:19 AM) 8.9 mg/dL (09/18/15 6:51 AM) Calcium Lvl [8.5-10.5 mg/dL] 1.9 mg/dL (09/18/15 1:05 PM) Magnesium Lvl [1.8-2.4 mg/dL] 24 unit/L (09/18/15 6:51 AM) ALT [0-65 unit/L] 18 unit/L (09/18/15 6:51 AM) AST [0-37 unit/L] 80 unit/L (09/18/15 6:51 AM) Alk Phos [39-136 unit/L] 0.7 mg/dL (09/18/15 6:51 AM) Bili Total [0.2-1.3 mg/dL] 1Result Comment: The eGFR is calculated using the [...] from the National Kidney Disease Education Program ( NKDEP) which additionally recommends that when the eGFR is used in patients with extremes of body mass index for purposes of drug dosing, the eGFR should be mul tiplied by the estimated BMI. 2Result Comment: The eGFR is calculated using the [...] from the National Kidney Disease Education Program ( NKDEP) which additionally recommends that when the eGFR is used in patients with extremes of body mass index for purposes of drug dosing, the eGFR should be mul tiplied by the estimated BMI. CARDIAC ENZYMES 1 2 3 Most recent to oldest [Reference Range]: 40 unit/L (09/19/15 2:19 AM) 39 unit/L (09/18/15 5:45 PM) <7 unit/L *LOW* (09/18/15 1:05 PM) Total CK [12-191 unit/L] <0.5 ng/mL (09/19/15 2:19 AM) <0.5 ng/mL (09/18/15 5:45 PM) 1.3 ng/mL (09/18/15 1:05 PM) CK MB [0.5-3.6 ng/mL] <1.2 (09/19/15 2:19 AM) <1.3 (09/18/15 5:45 PM) 18.6 *HI* (09/18/15 1:05 PM) CK MB Index [0.0-2.5] <0.02 ng/mL (09/19/15 2:19 AM) <0.02 ng/mL (09/18/15 5:45 PM) <0.02 ng/mL (09/18/15 1:05 PM) Troponin-I [0.00-0.40 ng/mL] 46 pg/mL (09/18/15 6:51 AM) BNP [<=100 pg/mL] LIPIDS 1 2 3 Most recent to oldest [Reference Range]: 4.53 (09/19/15 2:19 AM) CHD Risk [4.00-7.30] 145 mg/dL (09/19/15 2:19 AM) Chol [<=199 mg/dL] 138 mg/dL (09/19/15 2:19 AM) Trig [<=149 mg/dL] 32 mg/dL *LOW* (09/19/15 2:19 AM) HDL [>=61 mg/dL] 85 mg/dL (09/19/15 2:19 AM) LDL (Calculated) [<=99 mg/dL] 28 *NA* (09/19/15 2:19 AM) VLDL SPECIAL CHEMISTRY 1 2 3 Most recent to oldest [Reference Range]: 5.6 % (09/18/15 5:45 PM) Hgb A1C [<=5.6 %] ANEMIA STUDY 1 2 3 Most recent to oldest [Reference Range]: 690 pg/mL (09/18/15 1:05 PM) Vitamin B12 Lvl [254-1320 pg/mL] URINE AND STOOL 1 2 3 Most recent to oldest [Reference Range]: Slight *ABN* (09/18/15 8:44 AM) UA Turbidity [Clear] Ltyellow *NA* (09/18/15 8:44 AM) UA Color >=9.0 *ABN* (09/18/15 8:44 AM) UA pH [5.0-8.0] 1.011 (09/18/15 8:44 AM) UA Spec Grav [<=1.030] Negative mg/dL *NA* (09/18/15 8:44 AM) UA Glucose [Negative mg/dL] Negative (09/18/15 8:44 AM) UA Blood [Negative] Negative mg/dL *NA* (09/18/15 8:44 AM) UA Ketones [Negative mg/dL] Negative mg/dL (09/18/15 8:44 AM) UA Protein [Negative mg/dL] <=1.0 mg/dL *NA* (09/18/15 8:44 AM) UA Urobilinogen [0.1-1.0 mg/dL] Negative *NA* (09/18/15 8:44 AM) UA Bili [Negative] Negative (09/18/15 8:44 AM) UA Leuk Est [Negative] Negative (09/18/15 8:44 AM) UA Nitrite [Negative] 1 /HPF (09/18/15 8:44 AM) UA WBC [0-5 /HPF] 2 /HPF (09/18/15 8:44 AM) UA RBC [0-2 /HPF] None Seen *NA* (09/18/15 8:44 AM) UA Sq Epi Few /LPF *NA* (09/18/15 8:44 AM) UA Mucus [None Seen /LPF] HEMATOLOGY 1 2 3 Most recent to oldest [Reference Range]: 5.0 K/CMM (09/19/15 2:19 AM) 8.2 K/CMM (09/18/15 6:51 AM) WBC [3.7-10.4 K/CMM] 3.77 M/CMM *LOW* (09/19/15 2:19 AM) 4.23 M/CMM *LOW* (09/18/15 6:51 AM) RBC [4.70-6.10 M/CMM] 12.6 g/dL *LOW* (09/19/15 2:19 AM) 13.9 g/dL *LOW* (09/18/15 6:51 AM) Hgb [14.0-18.0 g/dL] 37.1 % *LOW* (09/19/15 2:19 AM) 41.5 % *LOW* (09/18/15 6:51 AM) Hct [42.0-54.0 %] 98.4 fL *HI* (09/19/15 2:19 AM) 98.1 fL *HI* (09/18/15 6:51 AM) MCV [80.0-94.0 fL] 33.3 pg *HI* (09/19/15 2:19 AM) 32.9 pg *HI* (09/18/15 6:51 AM) MCH [27.0-31.0 pg] 33.8 g/dL (09/19/15 2:19 AM) 33.5 g/dL (09/18/15 6:51 AM) MCHC [32.0-36.0 g/dL] 13.2 % (09/19/15 2:19 AM) 12.9 % (09/18/15 6:51 AM) RDW [11.5-14.5 %] 236 K/CMM (09/19/15 2:19 AM) 269 K/CMM (09/18/15 6:51 AM) Platelet [133-450 K/CMM] 8.0 fL (09/19/15 2:19 AM) 7.7 fL (09/18/15 6:51 AM) MPV [7.4-10.4 fL] 54.7 % (09/19/15 2:19 AM) 82.1 % *HI* (09/18/15 6:51 AM) Segs [45.0-75.0 %] 32.2 % (09/19/15 2:19 AM) 13.2 % *LOW* (09/18/15 6:51 AM) Lymphocytes [20.0-40.0 %] 10.4 % (09/19/15 2:19 AM) 4.0 % (09/18/15 6:51 AM) Monocytes [2.0-12.0 %] 2.2 % (09/19/15 2:19 AM) 0.4 % (09/18/15 6:51 AM) Eosinophils [0.0-4.0 %] 0.5 % (09/19/15 2:19 AM) 0.3 % (09/18/15 6:51 AM) Basophils [0.0-1.0 %] 2.8 K/CMM (09/19/15 2:19 AM) 6.7 K/CMM (09/18/15 6:51 AM) Segs-Bands # [1.5-8.1 K/CMM] 1.6 K/CMM (09/19/15 2:19 AM) 1.1 K/CMM (09/18/15 6:51 AM) Lymphocytes # [1.0-5.5 K/CMM] 0.5 K/CMM (09/19/15 2:19 AM) 0.3 K/CMM (09/18/15 6:51 AM) Monocytes # [0.0-0.8 K/CMM] 0.1 K/CMM (09/19/15 2:19 AM) Eosinophils # [0.0-0.5 K/CMM] 14.0 seconds (09/18/15 6:51 AM) PT [12.0-14.7 seconds] 1.05 (09/18/15 6:51 AM) INR [0.85-1.17] 29.0 seconds (09/18/15 6:51 AM) PTT [22.9-35.8 seconds] Immunizations No data available for this section Procedures Procedure Date Related Diagnosis Body Site Appendectomy Excision of segment of right middle lobe Social History Social History Type Response Alcohol Never Smoking Status Never smoker; Exposure to Tobacco Smoke None; Cigarette Smoking Last 365 Days No; Reg Smoking Cessation Counseling No Assessment and Plan Extracted from: Title: Neurology Progress Note Author: Mally Haider Date: 09/19/15 Jeannine POPE Impression and Plan 1. Dizziness, likely Peripheral [...]
--- OUTSIDE RECORDS SUMMARY | 2019-03-04 08:52 | XMS REPORT | Summary of Care ---
Author Author [facility]patient [facility] Address Unknown Phone Unavailable Encounter HQ Encntr_clifford(FIN) [id number] Date(s): 12/22/16 - 12/22/16 [facility] [address] [facility], [address] [place] [phone] Discharge Disposition: Home or Self Care Attending Physician: Lolita Panda MD Vital Signs No data available for this section Problem List Condition Effective Dates Status Health Status Informant Acid Resolved reflux(Confirmed) COPD(Confirmed) Resolved Hypertension(Confirm Active ed) [place] (myocardial 09/18/00 Resolved infarction)(Confirme d) TIA(Confirmed) 02/28/15 [...] Smoking Cessation Counseling No Assessment and Plan No data available for this section
[2019-03-04] MEDS ORDERED: CEFTRIAXONE SOD 1 GM/NS 50 ML 50 ML IV ONE (09:42)
[2019-03-04] MEDS ORDERED: SODIUM CHLORIDE 0.9% 1000ML 1,000 ML ONE (09:43)
[2019-03-04] MEDS ORDERED: GENTAMICIN 80MG/NS 100 ML 100 ML IV ONE (09:43)
[2019-03-04] MEDS ORDERED: MORPHINE SULFATE INJ 4 MG/ML INJ 1ML ONE (11:52)
[2019-03-04] MEDS ORDERED: DIPHENHYDRAMINE HCL 25 MG CAP PO PRN (12:00)
[2019-03-04] MEDS ORDERED: CEFTRIAXONE SOD 1 GM/NS 50 ML 50 ML IV SCH (12:00)
[2019-03-04] MEDS ORDERED: BELLADONNA/OPIUM 30 MG SUPP RC PRN (12:00)
[2019-03-04] MEDS ORDERED: ONDANSETRON HCL INJ 2MG/ML 2ML 2 MG/ML VIAL IV PRN (12:00)
--- OUTSIDE RECORDS SUMMARY | 2019-03-04 12:03 | XMS REPORT | Clinical Summary ---
Author Author [facility] Organization [facility] Address Unknown Phone Unavailable Care Team Providers Care Youth Nutritional Monitor Name Role Phone Lolita Panda MD PCP Allergies Comments Active Allergy Reactions Severity Noted Date Citalopram Anxiety Low 01/25/2015 Tamsulosin Rash Low 10/08/2018 Body aches Omeprazole Other (See Medium 10/16/2017 Comments) Sulfa (Sulfonamide Rash, Other Low 02/05/2016 Antibiotics) (See Comments) Medications End Date Status Medication Sig Dispensed Refills Start Date Active multivitamin with Take 1 tablet 0 minerals tablet by mouth every morning. Active nebulizers misc 1 Units 1 each 0 daily. 8 Active aspirin (ECOTRIN) 81 MG Take 81 mg by 0 enteric coated tablet mouth daily. Active acetaminophen (TYLENOL) Take 500 mg 0 500 MG tablet by mouth every 6 (six) hours as needed for mild pain or fever. Active ranitidine (ZANTAC) 150 Take 150 mg 0 MG tablet by mouth daily. Active doxazosin (CARDURA) 1 MG TAKE 1 TABLET 90 tablet 0 tablet (1 MG TOTAL) 9 BY MOUTH NIGHTLY Active tamsulosin (FLOMAX) 0.4 Take 0.4 mg 0 mg capsule by mouth daily with dinner. Active pantoprazole (PROTONIX) TAKE 1 TABLET 30 tablet 2 40 MG EC tablet BY MOUTH 9 EVERY DAY Active donepezil (ARICEPT) 5 MG Take 5 mg by 0 tablet mouth 9 nightly. Active albuterol sulfate GIVE 1 VIAL 120 mL 3 (PROVENTIL) 2.5 mg/0.5 mL BY 9 solution for nebulization NEBULIZATION EVERY 4 HOURS NEEDED FOR SHORTNESS OF BREATH Active albuterol (VENTOLIN HFA) Inhale 2 0 90 mcg/actuation inhaler puffs every 6 (six) hours as needed. Active fluticasone propionate 2 sprays (100 15.8 mL 3 (FLONASE) 50 mcg total) by 9 mcg/actuation nasal spray Each Nare route daily. 08/19/2018 Discontinued fluticasone-salmeterol Inhale 1 puff 0 (ADVAIR) 250-50 mcg/dose 2 (two) times DISKUS a day. 02/21/2019 Discontinued albuterol (PROAIR Inhale 2 0 HFA,PROVENTIL puffs every 6 HFA,VENTOLIN HFA) 90 (six) hours mcg/actuation inhaler as needed for wheezing. 05/14/2018 Discontinued traMADol (ULTRAM) 50 mg Take 1 tablet 0 tablet by mouth 7 every 6 (six) hours as needed. 04/17/2018 Discontinued albuterol sulfate Take 0.5 mL 120 each 0 (PROVENTIL) 2.5 mg/0.5 mL (2.5 mg 8 solution for nebulization total) by nebulization every 4 (four) hours as needed for shortness of breath for up to 30 days. 08/19/2018 Discontinued naproxen (EC-NAPROSYN) Take 1 tablet 60 tablet 11 500 MG EC tablet (500 mg 8 total) by mouth 2 (two) times a day with meals. 06/06/2018 Discontinued tamsulosin (FLOMAX) 0.4 TAKE 1 30 capsule 3 mg capsule,extended CAPSULE (0.4 8 release 24hr MG TOTAL) BY MOUTH DAILY FOR 30 DAYS. 06/18/2018 Discontinued hydroxychloroquine Take 1 tablet 0 (PLAQUENIL) 200 mg tablet (200 mg 8 total) by mouth daily. 06/18/2018 Discontinued pantoprazole (PROTONIX) TAKE 1 TABLET 30 tablet 3 40 MG EC tablet BY MOUTH 8 EVERY DAY 02/14/2019 Discontinued albuterol sulfate GIVE 1 VIAL 120 mL 0 (PROVENTIL) 2.5 mg/0.5 mL BY 8 solution for nebulization NEBULIZATION EVERY 4 HOURS NEEDED FOR SHORTNESS OF BREATH 06/18/2018 Discontinued tamsulosin (FLOMAX) 0.4 Take 1 3 mg capsule capsule by 8 mouth daily. 11/05/2018 Discontinued ranitidine (ZANTAC) 150 Take 150 mg 3 MG tablet by mouth 8 daily as needed. 05/24/2018 cefuroxime (CEFTIN) 250 Take 1 tablet 20 tablet 0 MG tablet (250 mg 8 total) by mouth 2 (two) times a day for 10 days. 05/21/2018 [id number] Administer 3 10 mL 0 (CORTISPORIN) drops to the 8 3.5-10,000-1 right ear 4 mg/mL-unit/mL-% otic (four) times suspension a day for 7 days. 06/13/2018 sertraline (ZOLOFT) 25 MG Take 1 tablet 30 tablet 4 tablet (25 mg total) 8 by mouth daily for 30 days. 07/06/2018 tamsulosin (FLOMAX) 0.4 TAKE 1 30 capsule 3 mg capsule CAPSULE (0.4 8 MG TOTAL) BY MOUTH DAILY FOR 30 DAYS. 08/19/2018 Discontinued guaifen/phenyleph/acetami Take by mouth 0 nophn (MUCINEX FAST-MAX take as COLD-SINUS ORAL) directed. 08/19/2018 Discontinued sertraline (ZOLOFT) 25 MG Take 25 mg by 0 tablet mouth daily. 06/28/2018 amoxicillin-pot Take 1 tablet 20 tablet 0 clavulanate (AUGMENTIN) (500 mg 8 500-125 mg per tablet total) by mouth 2 (two) times a day for 10 days. 10/08/2018 Discontinued pantoprazole (PROTONIX) Take 1 tablet 90 tablet 0 40 MG EC tablet (40 mg total) 8 by mouth daily. 10/02/2018 Discontinued aspirin-calcium carbonate Take 81 mg by 0 81 mg-300 mg calcium(777 mouth daily. 5 mg) tablet 11/05/2018 Discontinued ipratropium-albuterol Inhale 2 0 (COMBIVENT RESPIMAT) puffs 4 4 20-100 mcg/actuation mist (four) times inhaler a day as needed. 10/08/2018 Discontinued tamsulosin (FLOMAX) 0.4 Take 0.4 0 mg capsule capsules by 8 mouth nightly. 08/29/2018 benzonatate (TESSALON) Take 1 30 capsule 0 200 MG capsule capsule (200 8 mg total) by mouth 3 (three) times a day as needed for cough for up to 10 days. 10/12/2018 Discontinued atorvastatin (LIPITOR) 10 Take 1 tablet 30 tablet 0 MG tablet (10 mg total) 9 by mouth nightly for 30 days. 01/31/2019 Discontinued [id number]-cy-luqqfc Take 2 0 #[id number]-[id number] capsules by (URINOZINC PROSTATE mouth daily. FORMULA) 100 mg tablet 11/05/2018 Discontinued pantoprazole (PROTONIX) TAKE 1 TABLET 90 tablet 0 40 MG EC tablet BY MOUTH 9 EVERY DAY 01/10/2019 rosuvastatin (CRESTOR) 5 Take 1 tablet 90 tablet 0 MG tablet (5 mg total) 9 by mouth daily for 90 days. 10/31/2018 oseltamivir (TAMIFLU) 75 Take 1 10 capsule 0 MG capsule capsule (75 9 mg total) by mouth 2 (two) times a day for 5 days. 10/28/2018 Discontinued codeine-guaifenesin Take 5 mL by 118 mL 0 (GUAIFENESIN AC) 10-100 mouth 3 9 mg/5 mL liquid (three) times a day as needed for cough for up to 10 days. 11/07/2018 benzonatate (TESSALON) Take 1 30 capsule 0 200 MG capsule capsule (200 9 mg total) by mouth 3 (three) times a day as needed for cough for up to 10 days. 11/05/2018 Discontinued codeine-guaifenesin Take 5 mL by 118 mL 0 (GUAIFENESIN AC) 10-100 mouth 3 9 mg/5 mL liquid (three) times a day as needed for cough for up to 10 days. 01/13/2019 Discontinued pantoprazole (PROTONIX) Take 40 mg by 0 40 MG EC tablet mouth daily. 11/11/2018 azithromycin (ZITHROMAX) Take 2 6 tablet 0 250 MG tablet tablets the 9 first day, then 1 tablet daily for 4 days. 11/14/2018 predniSONE (DELTASONE) 20 Take 1 tablet 7 tablet 0 mg tablet (20 mg total) 9 by mouth daily for 7 days. 12/07/2018 albuterol (PROAIR Inhale 2 18 g 11 HFA,PROVENTIL puffs every 6 9 HFA,VENTOLIN HFA) 90 (six) hours mcg/actuation inhaler as needed for wheezing for up to 30 days. 12/03/2018 Discontinued doxazosin (CARDURA) 1 MG Take 1 tablet 30 tablet 1 tablet (1 mg total) 9 by mouth nightly for 30 days. 12/09/2018 Discontinued doxazosin (CARDURA) 1 MG TAKE 1 TABLET 30 tablet 0 tablet (1 MG TOTAL) 9 BY MOUTH NIGHTLY 01/31/2019 Discontinued pantoprazole (PROTONIX) TAKE 1 TABLET 90 tablet 0 40 MG EC tablet BY MOUTH 9 EVERY DAY Active Problems Problem Noted Date Chest pain 11/05/2018 TIA (transient ischemic attack) 10/02/2018 Monoclonal paraproteinemia 12/23/[address] 12/23/2017 Mixed connective tissue disease 12/23/2017 Pleuritic chest pain 11/13/2017 Arthralgia, lumbar spine 11/13/2017 Chronic left-sided low back pain without sciatica 11/13/2017 Complete tear of left rotator cuff 01/05/2017 Left shoulder pain 12/22/2016 Encounters Care Team Description Date Type Specialty Lolita Panda MD PND (post-nasal drip) (Primary Dx); Loss of appetite; Abnormal chest x-ray 02/21/2019 Office Visit Internal Medicine Lolita Panda MD 02/14/2019 Orders Only Internal Medicine Alana Meadows MA Abnormal chest sounds 02/09/2019 Orders Only Internal Medicine Lolita Panda MD Other fatigue (Primary Dx); Abnormal chest sounds; Dysuria 01/31/2019 Office Visit Internal Medicine Lolita Panda MD 01/20/2019 Refill Internal Medicine Lolita Panda MD Other fatigue (Primary Dx); Hyponatremia; Bone disorder 01/13/2019 Office Visit Internal Medicine Latisha Martinez MA 01/03/2019 Telephone Internal Medicine Lolita Panda MD 12/30/2018 Refill Internal Medicine Latisha Martinez MA 12/09/2018 Orders Only Internal Medicine Lolita Panda MD 12/03/2018 Refill Internal Medicine Rodríguez Abarca MD Mixed connective tissue disease (HCC); Monoclonal paraproteinemia 11/17/2018 Lab Lab Rodríguez Abarca MD Mixed connective tissue disease (HCC) (Primary Dx); Monoclonal paraproteinemia 11/17/2018 Office Visit Oncology Lolita Panda MD Pneumonitis (Primary Dx); Chest tightness; Benign prostatic hyperplasia with nocturia; Lung nodule; Bronchiectasis with acute lower respiratory infection (HCC) 11/10/2018 Office Visit Internal Medicine Rodríguez Abarca MD 11/10/2018 Orders Only Oncology Rodríguez Abarca MD 11/10/2018 Orders Only Oncology Lolita Panda MD 11/09/2018 Orders Only Internal Medicine Alana Meadows MA Flu-like symptoms; Cough; TIA (transient ischemic attack); Abnormal CT lung screening 11/08/2018 Orders Only Internal Medicine Maurice Bird MD Teqwimuah, Remy, DO Chest pain, unspecified type (Primary Dx); Pneumonia due to infectious organism, unspecified laterality, unspecified part of lung 11/05/2018 Emergency General Internal Medicine - 11/07/2018 Lolita Panda MD 10/28/2018 Orders Only Internal Medicine Latisha Martinez MA 10/28/2018 Telephone Internal Medicine Lolita Panda MD Flu-like symptoms (Primary Dx); Cough; Fever, unspecified fever cause 10/26/2018 Office Visit Internal Medicine Lolita Panda MD 10/12/2018 Orders Only Internal Medicine Lolita Panda MD TIA (transient ischemic attack) (Primary Dx); Other hyperlipidemia 10/08/2018 Office Visit Internal Medicine Lolita Panda MD 10/08/2018 Refill Internal Medicine Hugh Lombardo DO Al-Lahiq, Maha, MD TIA (transient ischemic attack) (Primary Dx) 10/02/2018 Emergency General Surgery - 10/03/2018 Lolita Panda MD Fever, unspecified fever cause (Primary Dx); Cough 08/19/2018 Office Visit Internal Medicine Lolita Panda MD 08/19/2018 Orders Only Internal Medicine Alana Meadows MA Fever, unspecified fever cause; Cough 08/19/2018 Orders Only Internal Medicine Lolita Panda MD Sinus congestion (Primary Dx); PND (post-nasal drip); Gastroesophageal reflux disease with esophagitis 06/18/2018 Office Visit Internal Medicine Lolita Panda MD 06/06/2018 Refill Internal Medicine Rodríguez Abarca MD Mixed connective tissue disease (Primary Dx); Monoclonal paraproteinemia 05/20/2018 Office Visit Oncology Lolita Panda MD Chronic obstructive pulmonary disease, unspecified COPD type (Primary Dx); MCTD (mixed connective tissue disease); Flu vaccine need; Need for vaccination against Streptococcus pneumoniae; Other infective acute otitis externa of right ear; Irritability and anger 05/14/2018 Office Visit Internal Medicine Lolita Panda MD 04/17/2018 Refill Internal Medicine Lolita Panda MD 03/27/2018 Refill Internal Medicine Latisha Martinez MA Mixed connective tissue disease 03/12/2018 Orders Only Internal Medicine after 03/03/2018 Immunizations Name Dates Previously Given Next Due FLUZONE HIGH-DOSE PF 05/14/2018, 05/11/2017, 06/20/2016 Pneumococcal Conjugate 06/20/2016 13-Valent Pneumococcal 05/14/2018 Polysaccharide Family History Medical History Relation Name Comments Heart disease Father No Known Problems Mother No Known Problems Sister Relation Name Status Comments Brother Alive Father Mother Sister Alive Social History Date Tobacco Use Types Packs/Day Years Used Quit: 1975 Former Smoker 0.25 Smokeless Tobacco: Never Used Alcohol Use Drinks/Week oz/Week Comments No Sex Assigned at Date Recorded Male 08/18/2018 11:06 PM [employer] Job Start Date Occupation Not on file Not on file Not on file Travel End Travel History Travel Start No recent travel history available. Last Filed Vital Signs Time Taken Vital Sign Reading 02/21/2019 10:41 AM CDT Blood Pressure 117/67 02/21/2019 10:41 AM CDT Pulse 80 02/21/2019 10:41 AM CDT Temperature 36.5 C (97.7 F) 02/21/2019 10:41 AM CDT Respiratory Rate 16 02/21/2019 10:41 AM CDT Oxygen Saturation 95% - Inhaled Oxygen - Concentration 02/21/2019 10:41 AM CDT Weight 78.9 kg (174 lb) 02/21/2019 10:41 AM CDT Height 175.3 cm (5' 9") 02/21/2019 10:41 AM CDT Body Mass Index 25.7 Plan of Treatment Care Team Description Date Type Specialty [place]rí[place] [address] [address] [phone] 05/23/2019 Office Visit Oncology Health Maintenance Due Date Last Done Comments SHINGLES VACCINES (#1) 1989 INFLUENZA VACCINE 03/31/2019 05/14/2018, 05/14/2018, 05/11/2017, Additional history exists 65+ PNEUMOCOCCAL VACCINE Completed 05/14/2018, 06/20/2016, 03/15/2009, Additional history exists Implants Device Identifier Shelf Expiration Date Model / Serial / Lot Implanted Type Area Manufactur er 10/28/2018 [place] [id number] / / [id number] [place] [employer] C Orthopedic Left: Shoulder ARTHREX Vntd 4.75x19.1mm - [id number] [employer] Implanted: 02/17/2017 (Quantity not Implants on file) 10/28/2018 [place] [id number] / / [id number] [place] [employer] C Orthopedic Left: Shoulder ARTHREX Vntd 4.75x19.1mm - [id number] [employer] Implanted: 02/17/2017 (Quantity not Implants on file) 09/30/2018 [place] 1927BCF 45 / / [id number] [place] [employer] Ft Biocmpst W/ Orthopedic Left: Shoulder ARTHREX Two Sz 2 Fibrwr 4.5x15mm - [employer] [id number] Implants Implanted: 02/17/2017 (Quantity not on file) 09/30/2018 AR 1927BCF 45 / / [id number] [place] [employer] Biocmpst W/ Orthopedic Left: Shoulder ARTHREX Two Sz 2 Fibrwr 4.5x15mm - [employer] [id number] Implants Implanted: 02/17/2017 (Quantity not on file) Procedures Comments Procedure Name Priority Date/Time Associated Diagnosis XR CHEST 2 VW Routine 02/09/2019 Abnormal chest sounds 3:33 PM CDT URINALYSIS, AUTOMATED Routine 01/31/2019 Other fatigue WITH MICROSCOPY 11:09 AM CDT Dysuria URINE CULTURE Routine 01/31/2019 Other fatigue 11:09 AM CDT Dysuria VITAMIN D 25 HYDROXY Routine 01/13/2019 LEVEL 2:55 PM CDT URINALYSIS, AUTOMATED Routine 01/13/2019 Other fatigue WITH MICROSCOPY 2:55 PM CDT COMPREHENSIVE METABOLIC Routine 01/13/2019 Hyponatremia PANEL 2:55 PM CDT CBC WITH PLATELET AND Routine 01/13/2019 Other fatigue DIFFERENTIAL 2:55 PM CDT IMMUNOFIXATION, URINE Routine 11/17/2018 10:02 AM CDT URINE PROTEIN Routine 11/17/2018 Mixed connective tissue ELECTROPHORESIS, RANDOM 10:02 AM CDT disease (HCC) Monoclonal paraproteinemia URINE PROTEIN Routine 11/10/2018 ELECTROPHORESIS, RANDOM 10:23 AM CDT SERUM ELECTROPHORESIS Routine 11/10/2018 10:23 AM CDT IMMUNOGLOBULIN G, A, M Routine 11/10/2018 8:49 AM CDT KAPPA LAMBDA FREE LIGHT Routine 11/10/2018 CHAIN WITH RATIO 8:49 AM CDT IMMUNOFIXATION, SERUM Routine 11/10/2018 8:49 AM CDT CBC WITH PLATELET AND Routine 11/10/2018 DIFFERENTIAL 8:49 AM CDT RETICULOCYTE COUNT, Routine 11/10/2018 AUTOMATED 8:49 AM CDT COMPREHENSIVE METABOLIC Routine 11/10/2018 PANEL 8:49 AM CDT XR CHEST 2 VW STAT 11/08/2018 Flu-like symptoms 10:03 AM CDT Cough ESTIMATED GFR Routine 11/07/2018 7:30 AM CDT BASIC METABOLIC PANEL Routine 11/07/2018 7:30 AM CDT HC COMPLETE BLD COUNT Routine 11/07/2018 W/AUTO DIFF 7:30 AM CDT ECHOCARDIOGRAM 2D Routine 11/06/2018 COMPLETE W MMODE SPECTRAL 6:00 PM SALES DESIGNER COLOR DOPPLER (60782) CT ANGIOGRAM PE CHEST Routine 11/06/2018 12:12 PM SALES DESIGNER LIPID PANEL Routine 11/06/2018 5:22 AM SALES DESIGNER ESTIMATED GFR Routine 11/06/2018 5:16 AM SALES DESIGNER COMPREHENSIVE METABOLIC Routine 11/06/2018 PANEL 5:16 AM SALES DESIGNER HC COMPLETE BLD COUNT Routine 11/06/2018 W/AUTO DIFF 5:16 AM SALES DESIGNER ECG 12-LEAD Routine 11/06/2018 4:13 AM SALES DESIGNER ECG 12-LEAD Routine 11/06/2018 12:57 AM SALES DESIGNER TROPONIN Timed 11/05/2018 11:56 PM SALES DESIGNER TROPONIN Timed 11/05/2018 8:00 PM SALES DESIGNER XR CHEST 1 VW PORTABLE STAT 11/05/2018 5:54 PM SALES DESIGNER ESTIMATED GFR STAT 11/05/2018 5:30 PM SALES DESIGNER B NATRIURETIC PEPTIDE STAT 11/05/2018 5:30 PM SALES DESIGNER TROPONIN STAT 11/05/2018 5:30 PM SALES DESIGNER COMPREHENSIVE METABOLIC STAT 11/05/2018 PANEL 5:30 PM SALES DESIGNER PARTIAL THROMBOPLASTIN STAT 11/05/2018 TIME (PTT) 5:30 PM SALES DESIGNER PROTHROMBIN TIME WITH INR STAT 11/05/2018 5:30 PM SALES DESIGNER HC COMPLETE BLD COUNT STAT 11/05/2018 W/AUTO DIFF 5:30 PM SALES DESIGNER ECG ED PRELIMINARY Routine 11/05/2018 INTERPRETATION 4:57 PM SALES DESIGNER ECG 12-LEAD STAT 11/05/2018 4:50 PM SALES DESIGNER POCT INFLUENZA A/B Routine 10/26/2018 Flu-like symptoms 10:06 AM SALES DESIGNER ECHOCARDIOGRAM WITH Routine 10/03/2018 AGITATED SALINE (67518) 3:00 PM SALES DESIGNER US CAROTID DUPLEX Routine 10/03/2018 BILATERAL 12:32 PM SALES DESIGNER ESTIMATED GFR Routine 10/03/2018 5:15 AM SALES DESIGNER BASIC METABOLIC PANEL Routine 10/03/2018 5:15 AM SALES DESIGNER LIPID PANEL Routine 10/03/2018 5:15 AM SALES DESIGNER SYPHILIS TREPONEMAL IGG Routine 10/03/2018 5:14 AM SALES DESIGNER HEMOGLOBIN A1C Routine 10/03/2018 5:14 AM SALES DESIGNER VITAMIN B12 LEVEL Routine 10/03/2018 5:14 AM SALES DESIGNER THYROID STIMULATING Routine 10/03/2018 HORMONE 5:14 AM SALES DESIGNER HOMOCYSTINE, PLASMA Routine 10/03/2018 5:14 AM SALES DESIGNER MRI BRAIN WO CONTRAST STAT 10/02/2018 8:54 PM SALES DESIGNER MRA NECK WO CONTRAST STAT 10/02/2018 8:51 PM SALES DESIGNER MRA HEAD WO CONTRAST STAT 10/02/2018 8:[address] HEAD WO CONTRAST STAT 10/02/2018 2:41 PM SALES DESIGNER ESTIMATED GFR STAT 10/02/2018 2:28 PM SALES DESIGNER TROPONIN STAT 10/02/2018 2:28 PM SALES DESIGNER CREATINE KINASE, TOTAL STAT 10/02/2018 (CPK) 2:28 PM SALES DESIGNER BASIC METABOLIC PANEL STAT 10/02/2018 2:28 PM SALES DESIGNER HC COMPLETE BLD COUNT STAT 10/02/2018 W/AUTO DIFF 2:28 PM SALES DESIGNER ECG ED PRELIMINARY Routine 10/02/2018 INTERPRETATION 2:06 PM SALES DESIGNER ECG 12-LEAD Routine 10/02/2018 2:06 PM SALES DESIGNER PNEUMOCOCCAL Routine 05/14/2018 POLYSACCHARIDE VACCINE 9:30 AM CDT 23-VALENT=>2YO SQ IM FLUZONE HIGH-DOSE PF Routine 05/14/2018 (0.5ML SYRINGE) 9:30 AM CDT SERUM ELECTROPHORESIS Routine 05/12/2018 Monoclonal 10:23 AM CDT paraproteinemia Abnormal chest CT Mixed connective tissue disease COMPREHENSIVE METABOLIC Routine 05/12/2018 Monoclonal PANEL 10:23 AM CDT paraproteinemia Abnormal chest CT Mixed connective tissue disease BETA-2 MICROGLOBULIN Routine 05/12/2018 Monoclonal 10:23 AM CDT paraproteinemia Abnormal chest CT Mixed connective tissue disease IMMUNOGLOBULIN G, A, M Routine 05/12/2018 Monoclonal 10:23 AM CDT paraproteinemia Abnormal chest CT Mixed connective tissue disease KAPPA LAMBDA FREE LIGHT Routine 05/12/2018 Monoclonal CHAIN WITH RATIO 10:23 AM CDT paraproteinemia Abnormal chest CT Mixed connective tissue disease IMMUNOFIXATION, SERUM Routine 05/12/2018 Monoclonal 10:23 AM CDT paraproteinemia Abnormal chest CT Mixed connective tissue disease CBC WITH PLATELET AND Routine 05/12/2018 Monoclonal DIFFERENTIAL 10:23 AM CDT paraproteinemia Abnormal chest CT Mixed connective tissue disease after 03/03/2018 Results * XR Chest 2 Vw (02/09/2019 3:33 PM CDT) Only the most recent of 2 results within the time period is included. Narrative Performed At * Urinalysis, automated with microscopy (01/31/2019 11:09 AM CDT) Only the most recent of 2 results within the time period is included. Color, UA DARK YELLOW YELLOW [facility] Appearance CLEAR CLEAR [facility] Specific 1.022 1.001 - 1.035 [facility] gravity, urine [facility] pH, urine 6.0 5.0 - 8.0 [facility] Glucose, urine NEGATIVE NEGATIVE [facility] Bilirubin, UA NEGATIVE NEGATIVE [facility] Ketones, UA TRACE (A) NEGATIVE [facility] Occult blood, NEGATIVE NEGATIVE [facility] urine [facility] Protein, UA NEGATIVE NEGATIVE [facility] Nitrite, UA NEGATIVE NEGATIVE [facility] Leukocyte NEGATIVE NEGATIVE [facility] esterase, UA [facility] WBC, UA 0-5 < OR=5 /HPF [facility] RBC, UA 0-2 < OR=2 /HPF [facility] Squamous NONE SEEN < OR=5 /HPF [facility] epithelial DIAGNOSTICS cells, [facility]A [place] Bacteria, UA NONE SEEN NONE SEEN /HPF [facility] Hyaline casts, NONE SEEN NONE SEEN /LPF [facility] UA [facility] Specimen Urine Narrative Performed At FASTING:NO [facility] FASTING: NO Resulting Agency Comment Performing Organization Information: Site ID: [id number] Name: [facility] Address: [address] [place] [id number] Director: Rosa Vale Performing Organization Address City/State/Zipcode Phone Number [facility] [place] [address] * Urine culture (01/31/2019 11:09 AM CDT) Urine culture SEE NOTE [facility] Comment: DIAGNOSTICS CULTURE, URINE, ROUTINE [place] MICRO NUMBER:[id number] TEST STATUS: FINAL SPECIMEN SOURCE: URINE SPECIMEN QUALITY:ADEQUATE RESULT: Multiple organisms present, each less than 10,000 CFU/mL. These organisms, commonly found on external and internal genitalia, are considered to be colonizers. No further testing performed. Specimen Urine Narrative Performed At FASTING:NO [facility] FASTING: NO Resulting Agency Comment Performing Organization Information: Site ID: [id number] Name: [facility] Address: [address] [place] [id number] Director: Rosa Vale Performing Organization Address [facility] Phone Number [facility] [place] [phone] * Vitamin D 25 hydroxy level (01/13/2019 2:55 PM CDT) Pathologist [facility] Vitamin D, 30 30 - 100 ng/mL [facility] 25-hydroxy Comment: DIAGNOSTICS Vitamin D [place] Status 25-OH Vitamin D: Deficiency: <20 ng/mL Insufficiency: 20 - 29 ng/mL Optimal: > or=30 ng/mL For 25-OH Vitamin D testing on patients on D2-supplementation and patients for whom quantitation of D2 and D3 fractions is required, the QuestAssureD(TM) 25-OH VIT D, (D2,D3), LC/MS/MS is recommended: order code 89613 (patients >2yrs). For more information on this test, go to: http://education.[employer]/faq/TVJ716 (This link is being provided for informational/educational purposes only.) Specimen Narrative Performed At FASTING:NO [facility] FASTING: NO Resulting Agency Comment Performing Organization Information: Site ID: [id number] Name: [facility] Address: [address] [place] [phone] Director: Rosa Vale Performing Organization Address [facility] Phone Number TAIWO [employer] [address] [phone] * CBC with platelet and differential (01/13/2019 2:55 PM CDT) Only the most recent of 7 results within the time period is included. [facility] WBC 6.6 3.8 - 10.8 [facility] Thousand/uL [facility] RBC 3.47 (L) 4.20 - 5.80 [facility] Million/uL [facility] HGB 11.8 (L) 13.2 - 17.1 g/dL [facility] HCT 33.6 (L) 38.5 - 50.0 % [facility] MCV 96.8 80.0 - 100.0 fL [facility] MCH 34.0 (H) 27.0 - 33.0 pg [facility] MCHC 35.1 32.0 - 36.0 g/dL [facility] RDW 12.8 11.0 - 15.0 % [facility] Platelet count 309 140 - 400 [facility] Thousand/uL [facility] MPV 9.8 7.5 - 12.5 fL [facility] Neutrophils, 3,650 1,500 - 7,800 [facility] absolute cells/uL [facility] [place] Lymphocytes, 1,650 850 - 3,900 cells/uL [facility] absolute [facility] [place] Monocytes, 805 200 - 950 cells/uL [facility] absolute [facility] Eosinophils, 462 15 - 500 cells/uL [facility] absolute [facility] [place] Basophils, 33 0 - 200 cells/uL [facility] absolute [facility] [place] Neutrophils 55.3 % [facility] Lymphocytes 25.0 % [facility] Monocytes 12.2 % [facility] Eosinophils 7.0 % [facility] Basophils + RC 0.5 % [facility] Specimen Blood Narrative Performed At FASTING:NO [facility] FASTING: NO Resulting Agency Comment Performing Organization Information: Site ID: [id number] Name: [facility] Address: [address] [place] [id number] Director: Rosa Vale Performing Organization Address City/State/Zipcode Phone Number [facility] [address] [place], [place] [phone] * Comprehensive metabolic panel (01/13/2019 2:55 PM CDT) Only the most recent of 5 results within the time period is included. Pathologist [facility] Glucose 111 65 - 139 mg/dL [facility] Comment: DIAGNOSTICS Non-fasting [place] reference interval BUN, whole 20 7 - 25 mg/dL [facility] blood [facility] [place] Creatinine 0.92 0.70 - 1.18 mg/dL [facility] Comment: DIAGNOSTICS For patients >49 years of age, [place] the reference limit for Creatinine is approximately 13% higher for people identified as -Turkmen. EGFR Non-Afr. 79 > OR=60 [facility] [place] mL/min/1.73m2 [facility] [place] EGFR 91 > OR=60 [facility] Turk[place] mL/min/1.73m2 [facility] BUN/creatinine NOT APPLICABLE 6 - 22 (calc) [facility] ratio [facility] [place] Sodium 139 135 - 146 mmol/L [facility] [place] Potassium 4.5 3.5 - 5.3 mmol/L [facility] [place] Chloride 104 98 - 110 mmol/L [facility] [place] CO2 28 20 - 32 mmol/L [facility] [place] Calcium 9.1 8.6 - 10.3 mg/dL [facility] [place] Protein 6.7 6.1 - 8.1 g/dL [facility] [place] Albumin, S 3.8 3.6 - 5.1 g/dL [facility] [place] Globulin, total 2.9 1.9 - 3.7 g/dL [facility] (calc) [facility] [place] Albumin/globuli 1.3 1.0 - 2.5 (calc) [facility] n ratio [facility] [place] Total bilirubin 0.5 0.2 - 1.2 mg/dL [facility] [place] Alkaline 70 40 - 115 U/L [facility] phosphatase [facility] [place] AST 15 10 - 35 U/L [facility] [place] ALT 10 9 - 46 U/L [facility] [place] Specimen Blood Narrative Performed At FASTING:NO [facility] FASTING: NO Resulting Agency Comment Performing Organization Information: Site ID: [id number] Name: [facility] Address: [address] [place] [phone] Director: Rosa Vale Performing Organization Address City/[facility]/Zipcode Phone Number [facility] [place] [phone] * Urine protein electrophoresis, random (11/17/2018 10:02 AM CDT) Only the most recent of 2 results within the time period is included. Urine protein 20 mg/dL [facility] UP albumin 26.6 % [facility] UPE globulin 73.4 % [facility] UPE extended See Comment [place] interpretation Comment: BUDDHIST An abnormal random urine [facility] protein study with proteinuria equivalent to 200 mg/L. The proteinuria is in a glomerular pattern.A faint monoclonal IgA Lambda band is seen on immunofixation electrophoresis only. This band is excreted in minute amount. UPE See Comment [place] interpretation Comment: BUDDHIST [facility] , PhD; Wilder Levin, PhD; Vicente Alvarado MD, PhD Specimen Urine Narrative Performed At [facility] added by laboratory pathologist reviewing electrophoresis. [facility] DEPARTMENT OF PATHOLOGY AND GENOMIC MEDICINE Performing Organization Address City/State/Zipcode Phone Number [facility] DEPARTMENT OF [address] [place] [phone] PATHOLOGY AND GENOMIC MEDICINE [place] BUDDHIST [address] [place] [address] * Immunofixation, urine (11/17/2018 10:02 AM CDT) Immunofixation, SEE COMMENTComment: See [facility] urine electrophoresis report below. [facility] Specimen Urine Narrative Performed At [facility] added by laboratory pathologist reviewing electrophoresis. [facility] DEPARTMENT OF PATHOLOGY AND GENOMIC MEDICINE Performing Organization Address City/State/Zipcode Phone Number [facility] DEPARTMENT OF [address] [place] [address] PATHOLOGY AND GENOMIC MEDICINE [place] [id number] [place] [address] HOSPITAL * Serum electrophoresis (11/10/2018 10:23 AM CDT) Only the most recent of 2 results within the time period is included. Protein 7.3 6.1 - 8.1 g/dL [facility] ING II Albumin, S 3.7 (L) 3.8 - 4.8 g/dL [facility] IN[facility] II Kpbnu-2-hkgyiau 0.5 (H) 0.2 - 0.3 g/dL [facility] n [facility] ING II Qmdbm-2-dhnnqux 0.9 0.5 - 0.9 g/dL [facility] n [facility] ING II Beta-1 globulin 1.0 (H) 0.4 - 0.6 g/dL [facility] ING II Beta-2 globulin 0.3 0.2 - 0.5 g/dL [facility] ING II Gamma, CSF 1.0 0.8 - 1.7 g/dL [facility] ING II Abnormal 0.6 (H) NONE DETECTED g/dL [facility] protein band 1 [facility] ING II Interpretation Comment: [facility] Evaluation reveals a [facility] restricted band (M-spike) ING II migrating in the beta-1 globulin region.Consider immunofixation analysis if indicated. Specimen Narrative Performed At [facility] 11/10/2018 FROM [id number] [facility] FASTING:UNKNOWN FASTING: UNKNOWN Resulting Agency Comment Performing Organization Information: Site ID: [id number] Name: [facility] Address: [address] [place] [address] Director: Dr. Hilario Ye Performing Organization Address City/State/Zipcode Phone Number TAIWO WYMANCORNELIO [address] [facility] [place] [address] II * Reticulocyte count, automated (11/10/2018 8:49 AM CDT) Retic count, 1.1 % [facility] manual [facility] [place] Retic absolute, 40,480 25,000 - 90,000 [facility] auto cells/uL [facility] [place] Specimen Narrative Performed At FASTING:YES [facility] PATIENT UNABLE TO VOID; ADVISED TO RETURN FOR COLLECTION. FASTING: YES Resulting Agency Comment Performing Organization Information: Site ID: [id number] Name: [facility] Address: [address] [place] [address] Director: Rosa Vale Performing Organization Address City/[facility]/Zipcode Phone Number [facility] [address] [place] [address] * [place] lambda free light chain with ratio (11/10/2018 8:49 AM CDT) Only the most recent of 2 results within the time period is included. [place] light 21.7 (H) 3.3 - 19.4 mg/L [facility] chain [facility] ING II Lambda light 109.5 (H) 5.7 - 26.3 mg/L [facility] chain [facility] ING II [place] lambda 0.20 (L) 0.26 - 1.65 [facility] ratio Comment: [facility] Free kappa/lambda ratio in ING II serum of normal individuals is 0.26-1.65. Excess production of free kappa or lambda chains can alter this ratio. Monoclonal free light chains are found in serum of patients with multiple myeloma, Waldenstrom's macroglobulinemia, mu-heavy chain disease, primary amyloidosis, light chain deposition disease, monoclonal gammopathy of undetermined significance, and lymphoproliferative disorders. Measurement of free light chain concentration in serum is useful for diagnosis, prognosis, monitoring disease activity and following response to therapy of these disorders. Specimen Narrative Performed At FASTING:YES [facility] PATIENT UNABLE TO VOID; ADVISED TO RETURN FOR COLLECTION. FASTING: YES Resulting Agency Comment Performing Organization Information: Site ID: [id number] Name: [facility] Address: [address] [place] [address] Director: Dr. Hilario Ye Performing Organization Address City/[facility]/Zipcode Phone Number [facility] [address] [facility] [place] [address] II * Immunofixation, serum (11/10/2018 8:49 AM CDT) Only the most recent of 2 results within the time period is included. Interpretation Comment: IgA lambda monoclonal [facility] band present. [facility]ICS[facility] ING II Specimen Narrative Performed At FASTING:YES [facility] PATIENT UNABLE TO VOID; ADVISED TO RETURN FOR COLLECTION. FASTING: YES Resulting Agency Comment Performing Organization Information: Site ID: IG Name: [facility] Address: [address] [place] [id number] Director: Dr. Hilario Ye Performing Organization Address City/State/Zipcode Phone Number [facility] [id number] [address] II * Immunoglobulin G, A, M (11/10/2018 8:49 AM CDT) Only the most recent of 2 results within the time period is included. Pathologist [facility] IgA 796 (H) 81 - 463 mg/dL [facility] IgG 1,183 694 - 1,618 mg/dL [facility] IgM 43 (L) 48 - 271 mg/dL [employer] [facility] Specimen Narrative Performed At FASTING:YES [facility] PATIENT UNABLE TO VOID; ADVISED TO RETURN FOR COLLECTION. FASTING: YES Resulting Agency Comment Performing Organization Information: Site ID: [id number] Name: [facility] Address: [address] [place] [id number] Director: Rosa Vale Performing Organization Address City/[facility]/Zipcode Phone Number [facility] [address] [address] * Estimated GFR (11/07/2018 7:30 AM CDT) Only the most recent of 5 results within the time period is included. Pathologist [facility] Estimated GFR 85 mL/min/1.73 m2 [facility] Comment: BUDDHIST [facility] [place]pretation G1 >=90 Normal or high G2 60-89Mildly decreased [id number] Mildly to moderately decreased E3u06-14 Moderately to severely decreased G4 15-29Severely decreased G5 <15Kidney failure The eGFR was calculated using the Chronic Kidney Disease Epidemiology Collaboration (CKD-EPI) equation. Interpretation is based on recommendations of the National Kidney Foundation-Kidney Disease Outcomes Quality Initiative (NKF-KDOQI) published in 2014. Specimen Plasma specimen Performing Organization Address [facility] Phone Number [facility] DEPARTMENT [address] [place] [address] PATHOLOGY AND GENOMIC MEDICINE [address] * Basic metabolic panel (11/07/2018 7:30 AM CDT) Only the most recent of 3 results within the time period is included. [facility] Sodium 131 (L) 135 - 148 mEq/L [facility] Potassium 4.2 3.5 - 5.0 mEq/L [facility] Chloride 93 (L) 98 - 112 mEq/L [facility] CO2 29 24 - 31 mEq/L [facility] Anion gap 9@ANIO 7 - 15 mEq/L [facility] BUN 13 8 - 23 mg/dL [facility] Creatinine 0.80 0.70 - 1.20 mg/dL [facility] Glucose 131 (H) 65 - 99 mg/dL [facility] Calcium 9.5 8.8 - 10.2 mg/dL [facility] Specimen Plasma specimen Performing Organization Address [facility] Hospitalcode Phone Number [facility] [address] [place] [address] PATHOLOGY AND GENOMIC MEDICINE [address] * Echocardiogram complete w contrast and 3D if needed (11/06/2018 6:00 PM SALES DESIGNER) AoV Area, Vmax 2.33 cm2 [facility] AoV Area, VTI 2.67 cm2 [facility] AoV Mean PG 7.71 mmHg [facility] AoV Peak PG 13.49 mmHg [facility] AoV Vmax 1.84 m/s [facility] AoV VTI 0.33 m [facility] IVS,d 1.10 cm [facility] LV,d 4.85 cm [facility] LV EF,A2C 72.38 % [facility] LV EF,A4C 71.27 % [facility] LV EF,BP 71.72 % [facility] [place],d A2C 9.16 cm [facility] [place],d A4C 8.33 cm [facility] [place],s A2C 6.82 cm [facility] [place],s A4C 6.05 cm [facility] LV,s 2.71 cm [facility] LV SV,A2C 97.56 % [facility] LV SV,A4C 72.88 % [facility] LV Vol,d A2C 134.78 mL [facility] LV Vol,d A4C 102.27 ml [facility] LV Vol,d BP 122.88 ml [facility] LV Vol,s A2C 37.23 mL [facility] LV Vol,s A4C 29.38 ml [facility] LV Vol,s BP 34.75 nl [facility] LVOT Diam,S 2.06 cm [facility] LVOT Vmax 1.28 m/s [facility] LVOT VTI 0.26 m [facility] LVPWD,d 1.11 cm [facility] TR Vpeak 2.53 mm/s [facility] AR Press Half 357.30 ms [facility] Time MV E A ratio 0.73 [facility] TR pk grad 25.50 mmHg [facility] MR Vmax 2.75 m/s [facility] MR peak grad 30.34 mmHg [facility] E wave 226.23 msec [facility] decelartion time MV Peak A Rex 1.20 m/s [facility] MV valve area p 3.49 cm2 [facility] 1/2 method MV Peak E Rex 0.88 m/s [facility] MV stenosis 63.05 ms [facility] pressure 1/2 time AV LVOT peak 6.56 mmHg [facility] gradient LV SYS VOL 27.30 ml [facility] LV ESCOBEDO VOL 110.03 ml [facility] LA area s A4C 22.13 cm2 [facility] LV SV Teich 2D 82.72 ml [facility] LVOT SI 45.42 ml/m2 [facility] AoV Cusp sep 1.44 [facility] AoV Vmn 1.33 [facility] IVS s 2D 1.63 [facility] AR slope 2.51 [facility] Ar Vmax 3.09 [facility] LA Ao Ratio 1.14 [facility] Mmode LVOT Vmn 0.88 [facility] Pt Size 175.26 [facility] Pt Wt 78.47 [facility] PV AT 94.20 msec [facility] LVOT mean grad 3.41 mmHg [facility] AR DT 1,232.08 msec [facility] AR pk grad 38.25 mmHg [facility] LVPW s PLAX 1.39 cm [facility] MV Decel slope 3.90 m/s2 [facility] Velocity Ratio 0.70 m/s [facility] (V1/V2) EF 75.19 % [facility] E/A ratio 0.73 [facility] LVOT area 3.33 cm2 [facility] LA volume 53.00 cm3 [facility] LA Area d A4C 67 cm2 [facility] RA pressure 5.00 mmHg [facility] RVSP 30.50 mmHg [facility] LA diam s 4.00 cm [facility] Aortic Root 3.46 cm [facility] DE End [place]ob[place] 6.60 [facility] Grad DE End Diat Rex 1.28 [facility] AR maxPG 38.25 [facility] D E excurs 1.60 [facility] E f slope 0.04 [facility] E prime lat 0.10 [facility] E thomas sept 0.10 [facility] PV acc T slope 11.90 [facility] Specimen Narrative Performed At HM [facility] Left ventricular systolic function is normal. Left Ventricular ejection fraction is 55 - 60%. Left atrium size is mildly dilated. Performing Organization Address City/State/[facility] Phone Number [facility] [address] [place] [address] * CT Angiogram Pe Chest (11/06/2018 12:12 PM SALES DESIGNER) Specimen Narrative Performed At Examination: CT ANGIOGRAM PE CHEST [facility] Clinical history: PE r o Comparison: None Technique: Multiple computerized axial tomographic images were obtained of the chest during administration of IV contrast according to CTA PE chest protocol. Sagittal and coronal MIP CT angiographic series were constructed. CT imaging was performed with iterative reconstruction technique and/or automated exposure control to reduce radiation dose. IMPRESSION: 1.Pulmonary arterial opacification is satisfactory. There is no evidence of pulmonary embolism. 2.There is no pleural or pericardial effusion. Mild right infrahilar and precarinal lymphadenopathy is nonspecific, though possibly reactive. 3.The heart is not enlarged. The thoracic aorta is normal caliber.Calcified atherosclerotic coronary arterial plaque is present. 4.Lung windows demonstrate moderate cylindrical and cystic bronchiectasis which is primarily within the left lower lobe with focal consolidation in the left CP angle may be related to focal pneumonitis or possibly chronic scarring. Bronchiectasis is also present within the right middle and lower lobes within the base with some mucous plugging within the terminal bronchiolitis and mild diffuse peripheral reticular nodular opacities as well as more pleural consolidation. Within the upper lungs are several approximately 1 cm peripheral hazy opacities which also most likely focal areas of pneumonitis. Evaluation of the lungs is otherwise somewhat limited by respiratory motion, particularly within the upper lobes. 5.There is no acute osseous pathology.There is a moderate hiatal hernia with moderate circumferential thickening of the lower esophagus which is nonspecific. Conclusion: 1. No evidence of pulmonary embolus and. 2. Bronchiectasis and chronic fibrosis with superimposed acute bronchiolitis and pneumonitis. Please see above for full details. Free. Comparison to previous CT scans is recommended. If no prior CT scan is available, posttreatment follow-up is recommended to establish a long-term baseline and allow for surveillance of hazy nodules. [facility]-[id number] Procedure Note Hm Interface, Radiology Results Incoming - 11/06/2018 12:37 PM SALES DESIGNER Examination: CT ANGIOGRAM PE CHEST Clinical history: PE r o Comparison: None Technique: Multiple computerized axial tomographic images were obtained of the chest during administration of IV contrast according to CTA PE chest protocol. Sagittal and coronal MIP CT angiographic series were constructed. CT imaging was performed with iterative reconstruction technique and/or automated exposure control to reduce radiation dose. IMPRESSION: 1. Pulmonary arterial opacification is satisfactory. There is no evidence of pulmonary embolism. 2. There is no pleural or pericardial effusion. Mild right infrahilar and precarinal lymphadenopathy is nonspecific, though possibly reactive. 3. The heart is not enlarged. The thoracic aorta is normal caliber. Calcified atherosclerotic coronary arterial plaque is present. 4. Lung windows demonstrate moderate cylindrical and cystic bronchiectasis which is primarily within the left lower lobe with focal consolidation in the left CP angle may be related to focal pneumonitis or possibly chronic scarring. Bronchiectasis is also present within the right middle and lower lobes within the base with some mucous plugging within the terminal bronchiolitis and mild diffuse peripheral reticular nodular opacities as well as more pleural consolidation. Within the upper lungs are several approximately 1 cm peripheral hazy opacities which also most likely focal areas of pneumonitis. Evaluation of the lungs is otherwise somewhat limited by respiratory motion, particularly within the upper lobes. 5. There is no acute osseous pathology. There is a moderate hiatal hernia with moderate circumferential thickening of the lower esophagus which is nonspecific. Conclusion: 1. No evidence of pulmonary embolus and. 2. Bronchiectasis and chronic fibrosis with superimposed acute bronchiolitis and pneumonitis. Please see above for full details. Free. Comparison to previous CT scans is recommended. If no prior CT scan is available, posttreatment follow-up is recommended to establish a long-term baseline and allow for surveillance of hazy nodules. [id number] Performing Organization Address City/[facility]/Zipcode Phone Number DORIS [address] [place] [address] * Lipid panel (11/06/2018 5:22 AM SALES DESIGNER) Only the most recent of 2 results within the time period is included. [facility] Signature Cholesterol 111 <200 mg/dL [facility] Triglycerides 55 (A) <150 mg/dL [facility] HDL cholesterol 41 >40 mg/dL [facility] LDL cholesterol 67Comment: Result obtained by <100 mg/dL [facility] direct LDL measurement [facility] [place] Lipid panel [facility] interpretation Comment: [facility] Total Cholesterol [facility] (mg/dL) <200 Desirable 200-239Borderline -high >=240High Triglycerides (mg/dL) <150 Normal 150-199Borderline -high 200-499High >=500Very high HDL Cholesterol (mg/dL) <40Low (male) <40Low (female) LDL Cholesterol (mg/dL) <100 Optimal 100-129Near or above optimal 130-159Borderline -high 160-189High >=190Very high Risk Catergories that modify LDL goals. Risk Catergories LDL goal (mg/dL) CHD and CHD risk equivalent<100 (10-year risk >20%) Multiple (2+) risk factors <130 (10-year risk=<20%) 0-1 risk factors <160 (<10-year risk) Defining levels of lipids in metabolic syndrome Triglycerides >=150 mg/dL HDL Cholesterol Men <40 mg/dL Women <40 mg/dL Non-HDL cholesterol is a second target for therapy in persons with high triglycerides (>=200 mg/dL) Specimen Plasma specimen Performing Organization Address City/State/Zipcode Phone Number [facility] [place] [address] [address] PATHOLOGY AND GENOMIC MEDICINE [facility] [id number] [place] [address] [place] [address] [facility] * ECG 12 lead (11/06/2018 4:13 AM SALES DESIGNER) Only the most recent of 4 results within the time period is included. Ventricular 86 [facility] MUSE rate Atrial rate 86 [facility] MUSE DE interval 194 [facility] M[facility] QRSD interval 80 [facility] QT interval 342 [facility] QTC interval 409 [facility] P axis 1 68 [facility] M[facility] QRS axis 1 58 [facility] MUSE T wave axis 57 [facility] M[facility] EKG impression Normal sinus rhythm-Septal [facility] MUSE infarct (cited on or before 02-OCT-2018)-Abnormal ECG-In automated comparison with ECG of 06-NOV-2018 00:57,-No significant change was found- Specimen Narrative Performed At Performing Organization Address City/[facility]/Zipcode Phone Number [facility] [address] [place] [address] * Troponin (11/05/2018 11:56 PM SALES DESIGNER) Only the most recent of 4 results within the time period is included. Troponin <0.300 0.000 - 0.300 ng/mL [facility] Comment: [facility]. 0.30 - 1.49 [facility] ng/mlMay indicate increased risk of acute coronary syndrome. >=1.5 ng/ml Consistent with acute myocardial infarction. The diagnostic value of a single normal or non-diagnostic result is questionable.Serial samples at 2-6 hour intervals are required to rule out acute myocardial injury. Specimen Plasma specimen Performing Organization Address City/State/Zipcode [place] [address] [place] [address] PATHOLOGY AND GENOMIC MEDICINE [facility] [address] [place] [phone] [facility] * XR Chest 1 Vw Portable (11/05/2018 5:54 PM SALES DESIGNER) Specimen Narrative Performed At EXAMINATION:XR CHEST 1 VW PORTABLE [facility] CLINICAL HISTORY:78 years Male chest pain [facility] COMPARISON:02/04/2017 IMPRESSION: 1.Heart size and central vasculature are normal. Thoracic aorta is tortuous. 2.There is some stable elevation of the left hemidiaphragm with adjacent stable left basilar scarring. Mild scarring is seen within the right lung base. Some mild groundglass opacity in the right midlung and base, mild infectious process is not excluded. Please correlate. Stable blunting of the costophrenic angles. No new confluent consolidation. 3.Degenerative changes in the spine. [facility]-[id number] Procedure Note Hm Interface, Radiology Results Incoming - 11/05/2018 6:01 PM SALES DESIGNER EXAMINATION: XR CHEST 1 VW PORTABLE CLINICAL HISTORY:78 years Male chest pain [facility] COMPARISON: 02/04/2017 IMPRESSION: 1. Heart size and central vasculature are normal. Thoracic aorta is tortuous. 2. There is some stable elevation of the left hemidiaphragm with adjacent stable left basilar scarring. Mild scarring is seen within the right lung base. Some mild groundglass opacity in the right midlung and base, mild infectious process is not excluded. Please correlate. Stable blunting of the costophrenic angles. No new confluent consolidation. 3. Degenerative changes in the spine. [facility]-[id number] Performing Organization Address [facility] Phone Number [facility] [address] [place] [address] * Partial thromboplastin time, activated (11/05/2018 5:30 PM SALES DESIGNER) PTT 43.2 (H) 23.0 - 36.0 sec [place] Comment: ERIKA CROSS PTT therapeutic range for [facility] unfractionated heparin is 61.0-112.0 seconds which corresponds to Anti-Xa 0.3-0.7 U/ml. Specimen Blood Performing Organization Address [facility] Phone Number [facility] [place] [id number] [place] [address] [place] [address] PATHOLOGY AND GENOMIC MEDICINE [facility] [id number] [place] [address] [place] [address] [facility] * Prothrombin time with INR (11/05/2018 5:30 PM SALES DESIGNER) Prothrombin 13.9 11.5 - 14.[address] [facility] INR 1.1 [place] Comment: ERIKA CROSS The International Normalized [facility] Ratio (INR) is a therapeutic monitoring tool for patients who are stable on oral anticoagulant therapy. An INR of 2.0-3.0 is suggested for deep vein thrombosis/pulmonary embolism. Specimen Blood Performing Organization Address [facility]/Zipcode Phone Number [facility] [place] [id number] [place] [address] [place] [address] PATHOLOGY AND GENOMIC MEDICINE [address] * B natriuretic peptide (11/05/2018 5:30 PM SALES DESIGNER) [facility] BNP 58 0 - 100 pg/mL [facility] Specimen Blood Performing Organization Address [facility] Phone Number [facility] [place] [id number] [place] [address] [place] [address] PATHOLOGY AND GENOMIC MEDICINE [address] * ECG ED Preliminary Interpretation - Not an Order (11/05/2018 4:57 PM SALES DESIGNER) Only the most recent of 2 results within the time period is included. Narrative Performed At Maurice Bird MD 11/05/20186:39 PM ECG ED Preliminary Interpretation - Not an Order Performed by: Maurice Bird MD Authorized by: Maurice Bird MD ECG reviewed by ED Physician in the absence of a pourer: yes Interpretation: Interpretation: non-specific Rate: ECG rate:108 ECG rate assessment: tachycardic Rhythm: Rhythm: sinus tachycardia QRS: QRS axis:Normal QRS intervals:Normal ST segments: ST segments:Non-specific T waves: T waves: peaked Peaked:V3, V4, V5 and V6 * POC Influenza A/B (10/26/2018 10:06 AM SALES DESIGNER) Pathologist [facility] Rapid Influenza negative A Ag Rapid Influenza negative B Ag Specimen Nares * Echocardiogram complete w contrast and 3D if needed (10/03/2018 3:00 PM SALES DESIGNER) Pathologist [facility] Velocity Ratio 0.49 m/s [facility] (V1/V2) IVS,d 1.29 cm [facility] EF 59.60 % [facility] LA volume 59.00 cm3 [facility] LVPWD,d 1.41 cm [facility] AoV Mean PG 11.27 mmHg [facility] AV LVOT peak 5.19 mmHg HM [facility] gradient MV valve area p 3.79 cm2 [facility] 1/2 method E/A ratio 0.74 HM [facility] E wave 186.68 msec [facility] decelartion time LVOT Diam,S 1.97 cm HM [facility] LVOT area 3.05 cm2 [facility] LVOT Vmax 1.14 m/s [facility] LVOT VTI 0.25 m [facility] AoV Peak PG 21.75 mmHg HM [facility] MV Peak E Rex 0.68 m/s [facility] MV stenosis 58.09 ms HM [facility] pressure 1/2 time MV Peak A Rex 0.92 m/s [facility] LV Vol,s A2C 31.58 mL [facility] LV Vol,d A2C 85.55 mL [facility] AoV Area, Vmax 1.49 cm2 [facility] AoV Area, VTI 1.65 cm2 [facility] AoV Vmax 2.33 m/s [facility] LA Area d A4C 57 cm2 [facility] LV,d 3.34 cm [facility] LV,s 2.31 cm [facility] LV Vol,d A4C 129.04 ml [facility] LV Vol,s A4C 51.29 ml [facility] TR Vpeak 2.28 mm/s [facility] MV E A ratio 0.75 [facility] RA pressure 5.00 mmHg [facility] TR pk grad 20.71 mmHg [facility] RVSP 25.71 mmHg [facility] AR Press Half 509.13 ms [facility] Time LV SYS VOL 18.38 ml [facility] LV ESCOBEDO VOL 45.50 ml HM [facility] LA diam s 4.40 cm [facility] LA area s A4C 21.29 cm2 [facility] LA Vol MOD A4C 56.85 ml [facility] LV SV Teich 2D 27.12 ml [facility] LVOT SI 40.16 ml/m2 [facility] AoV Cusp sep 1.32 [facility] Aortic Root 2.66 cm HM [facility] AoV Vmn 1.58 [facility] AR slope 1.87 [facility] Ar Vmax 3.29 [facility] IVS s 2D 1.52 [facility] LA Ao Ratio 1.66 [facility] Mmode DE End Escobedo 3.54 [facility] Grad DE End Diat Rex 0.94 [facility] AR maxPG 43.29 [facility] D E excurs 1.10 [facility] E f slope 0.04 [facility] E prime lat 0.11 HM [facility] E thomas sept 0.12 [facility] PV acc T slope 7.10 [facility] PV AT 125.59 msec [facility] AoV VTI 0.47 m [facility] LV EF,A2C 63.08 % [facility] LV EF,A4C 60.25 % [facility] LV EF,BP 61.08 % [facility] [place],d A2C 8.71 cm HM [facility] [place],d A4C 8.12 cm HM [facility] [place],s A2C 5.88 cm HM [facility] [place],s A4C 6.46 cm [facility] LV SV,A2C 53.97 % [facility] LV SV,A4C 77.75 % [facility] LV Vol,d BP 108.06 ml [facility] LV Vol,s BP 42.05 nl [facility] LVOT Vmn 0.87 [facility] Pt Size 175.26 [facility] Pt Wt 77.11 [facility] LVOT mean grad 3.23 mmHg [facility] AR DT 1,755.62 msec [facility] AR pk grad 43.29 mmHg HM [facility] LVPW s PLAX 1.49 cm [facility] MV Decel slope 3.66 m/s2 [facility] Specimen Narrative Performed At [facility] Left ventricular systolic function is normal. Left Ventricular ejection fraction is 55 - 60%. Spectral Doppler shows impaired relaxation pattern of left ventricular diastolic filling. Bubble study negative for right to left shunt Performing Organization Address City/State/Zipcode Phone Number [facility] [address] [place] [address] * Us carotid duplex (10/03/2018 12:32 PM SALES DESIGNER) [facility] Signature L CCA Prox 16 cm/s [facility] L CCA Prox 127.5 cm/s [facility] R CCA Mid 19.50 cm/s [facility] R CCA Mid 137.80 cm/s [facility] L CCA Mid 16.00 cm/s HM [facility] L CCA Mid 120.90 cm/s HM [facility] L ECA Prox 13.60 cm/s [facility] L ECA Prox 189.1 cm/s [facility] R ECA Prox 10.90 cm/s HM [facility] L ICA Prox 14.1 cm/s [facility] L ICA Prox 86.6 cm/s HM [facility] R ICA Prox 11.5 cm/s [facility] R ICA Prox 58.1 cm/s [facility] L ICA/CCA Ratio 0.7 [facility] R ICA/CCA Ratio 1 [facility] L CCA Max 127.50 cm/s [facility] R CCA Max 169.30 cm/s [facility] L ICA Max 94.40 cm/s [facility] R ICA Max 164.70 cm/s [facility] R CCA Prox 19.5 cm/s [facility] R CCA Prox 169.3 cm/s [facility] R ICA Dist 9.5 cm/s [facility] R ICA Mid 18 cm/s [facility] L ICA Dist 20.6 cm/s [facility] L ICA DIST 74.9 cm/s [facility] R Car Bulb 164.70 cm/s [facility] R CCA Dist 19.5 cm/s HM [facility] R CCA Dist 131.9 cm/s [facility] R Vert Art 11.30 cm/s [facility] L Car Bulb 9.70 cm/s [facility] L Car Bulb 94.40 cm/s [facility] R Car Bulb 11.40 cm/s HM [facility] L CCA Dist 12.8 cm/s HM [facility] L CCA Dist 120.9 cm/s HM [facility] R ECA Prox 150.10 cm/s HM [facility] L ICA Mid 14.1 cm/s HM [facility] L ICA Mid 64.6 cm/s HM [facility] R ICA Dist 41.8 cm/s HM [facility] R ICA Mid 68.5 cm/s HM [facility] L Vert Art 15.40 cm/s [facility] L Vert Art 72.3 cm/s [facility] R Vert Art 60.10 cm/s [facility] Specimen Narrative Performed At [facility] There is less than 50% stenosis of the internal carotid artery bilaterally. Performing Organization Address City/[facility]/Zipcode Phone Number [facility] [address] [place] [phone] * Syphilis treponemal IgG (10/03/2018 5:14 AM SALES DESIGNER) Syphilis Non-reactiveComment: Non-reactive [place] treponemal IgG Non-reactive: No serological BUDDHIST evidence of Syphilis infection HOSPITAL Specimen Serum Performing Organization Address City/[facility]/Zipcode Phone Number [facility] DEPARTMENT OF [address] [place] [address] PATHOLOGY AND GENOMIC MEDICINE [place] [address] * Homocystine, plasma (10/03/2018 5:14 AM SALES DESIGNER) Pathologist [facility] Homocysteine 12.3 0.0 - 15.0 umol/L [place] Comment: BUDDHIST The risk for coronary vascular HOSPITAL disease increases progressively with homocysteine concentration.A 3.4 times greater risk is associated with a homocysteine concentration of greater than 15.8 umol/L as compared to a concentration below 14.1 umol/L. Specimen Plasma specimen Performing Organization Address [facility] Phone Number [facility] DEPARTMENT [address] [place] [address] * Thyroid stimulating hormone (10/03/2018 5:14 AM SALES DESIGNER) Pathologist [facility] TSH 2.07 0.27 - 4.20 uIU/mL [facility] Specimen Plasma specimen Performing Organization Address [facility] Phone Number [address] [place] [address] PATHOLOGY [address] * Hemoglobin A1c (10/03/2018 5:14 AM SALES DESIGNER) [facility] Hemoglobin A1C 4.9 4.0 - 6.0 % [place] Comment: ERIKA CROSS [facility] Less than 6% - Goal of therapy for Type II Diabetes Less than 7%-Goal of therapy for Type I Diabetes Less than 8%-Accepta ble control for Type I or Type II Diabetes Greater than 8%-Unacceptabl e control; action indicated. ([id number]) Specimen Blood Performing Organization Address [facility] Phone Number [address] [place] [address] PATHOLOGY AND [facility] MEDICINE [address] * Vitamin B12 level (10/03/2018 5:14 AM SALES DESIGNER) Vitamin B12 708 211 - 946 pg/mL [place] Comment: [facility] Significant overlap exists [facility] between normal and deficiency states. However, most patients with deficiencies will have Serum B12 <200 pg/mL. Specimen Serum Performing Organization Address City/State/Zipcode [place] [address] [place] [address] PATHOLOGY AND GENOMIC MEDICINE [facility]. [address] [place] [address] [facility] * MRI Brain Wo Contrast (10/02/2018 8:54 PM SALES DESIGNER) Specimen Narrative Performed At EXAM: [facility] CLINICAL H[facility]: Stroke TECHNIQUE: Multiplanar and multisequence MRI imaging of the brain was obtained without contrast. COMPARISON:CT brain, same day FINDINGS: No diffusion restriction to suggest acute infarct. Generalized brain parenchymal volume loss. 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 There are scattered T2/FLAIR hyperintensities within the subcortical and periventricular white matter, likely reflective of chronic microangiopathic changes. No acute intracranial hemorrhage, mass, hydrocephalus, or extra-axial fluid collection identified. Although this examination is not optimized for the sella, pituitary is grossly normal in appearance. Midline structures are maintained. The major flow voids in the skull base are identified. Right orbit lens replacement. Orbits are otherwise unremarkable. Moderate mucosal thickening seen within the left maxillary sinus. Remaining paranasal sinuses demonstrate scattered trace mucosal thickening. Mastoid air cells are normally pneumatized. IMPRESSION: Mild to moderate involutional changes are identified with no acute intracranial abnormality identified. [facility]-[id number] Procedure Note Interface, Radiology Results Incoming - 10/02/2018 9:02 PM SALES DESIGNER EXAM: MRI BRAIN WO CONTRAST CLINICAL HISTORY: Stroke TECHNIQUE: Multiplanar and multisequence MRI imaging of the brain was obtained without contrast. COMPARISON: CT brain, same day FINDINGS: No diffusion restriction to suggest acute infarct. Generalized brain parenchymal volume loss. 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 There are scattered T2/FLAIR hyperintensities within the subcortical and periventricular white matter, likely reflective of chronic microangiopathic changes. No acute intracranial hemorrhage, mass, hydrocephalus, or extra-axial fluid collection identified. Although this examination is not optimized for the sella, pituitary is grossly normal in appearance. Midline structures are maintained. The major flow voids in the skull base are identified. Right orbit lens replacement. Orbits are otherwise unremarkable. Moderate mucosal thickening seen within the left maxillary sinus. Remaining paranasal sinuses demonstrate scattered trace mucosal thickening. Mastoid air cells are normally pneumatized. IMPRESSION: Mild to moderate involutional changes are identified with no acute intracranial abnormality identified. [facility]-[id number] Performing Organization Address [facility] Phone Number [facility] [address] [place] [address] * MRA Neck Wo Contrast (10/02/2018 8:51 PM SALES DESIGNER) Specimen Narrative Performed At EXAMINATION:[facility]ECK WO CONTRAST [facility] CLINICAL HISTORY:Stroke COMPARISON:None. TECHNIQUE: Neck MRA using 2D and 3D [id number]-wi-[id number] technique with multi-planar MIP and 3D reconstruction. Multiplanar T1 fat sat sequences were also obtained. FINDINGS: The imaged bilateral cervical carotid and vertebral arterial systems appear widely patent without evidence of hemodynamically significant stenosis (0% by NASCET criteria). Dominant right vertebral artery. Normal branching pattern of the aortic arch. T1 fat sat images are nondiagnostic. IMPRESSION: Unremarkable neck MRA with no significant carotid or vertebral artery stenosis. [facility]-[id number] Procedure Note [facility], Radiology Results [facility] - 10/02/2018 9:09 PM SALES DESIGNER EXAMINATION: MRA NECK WO CONTRAST CLINICAL HISTORY: Stroke COMPARISON: None. TECHNIQUE: Neck MRA using 2D and 3D [id number]-zk-[id number] technique with multi-planar MIP and 3D reconstruction. Multiplanar T1 fat sat sequences were also obtained. FINDINGS: The imaged bilateral cervical carotid and vertebral arterial systems appear widely patent without evidence of hemodynamically significant stenosis (0% by NASCET criteria). Dominant right vertebral artery. Normal branching pattern of the aortic arch. T1 fat sat images are nondiagnostic. IMPRESSION: Unremarkable neck MRA with no significant carotid or vertebral artery stenosis. [id number] Performing Organization Address [facility] Phone Number [facility] [address] [place] [address] * MRA Head Wo Contrast (10/02/2018 8:37 PM SALES DESIGNER) Specimen Narrative Performed At EXAMINATION: MRA HEAD WO CONTRAST [facility] CLINICAL HISTORY: Stroke COMPARISON:None TECHNIQUE: [id number] MRA images of the [place] vessels were obtained with multiplanar and 3-D reconstructive algorithms. FINDINGS: The major branches of the anterior and posterior arterial circulations of the brain appear patent without evidence of aneurysm or hemodynamically significant stenosis. 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 Suspected markedly diminutive posterior communicating arteries with tiny infundibula noted arising from the posterior ramachandran of the communicating segments of the internal carotid arteries, bilaterally. IMPRESSION: No aneurysm or hemodynamically significant stenosis of the intracranial arterial circulation. [id number] Procedure Note Interface, Radiology Results Incoming - 10/02/2018 8:46 PM SALES DESIGNER EXAMINATION: MRA HEAD WO CONTRAST CLINICAL HISTORY: Stroke COMPARISON: None TECHNIQUE: [id number] MRA images of the [place] vessels were obtained with multiplanar and 3-D reconstructive algorithms. FINDINGS: The major branches of the anterior and posterior arterial circulations of the brain appear patent without evidence of aneurysm or hemodynamically significant stenosis. 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 Suspected markedly diminutive posterior communicating arteries with tiny infundibula noted arising from the posterior ramachandran of the communicating segments of the internal carotid arteries, bilaterally. IMPRESSION: No aneurysm or hemodynamically significant stenosis of the intracranial arterial circulation. [id number] Performing Organization Address City/State/Zipcode Phone Number [facility] [address] [place] [address] * CT Head Wo Contrast (10/02/2018 2:41 PM SALES DESIGNER) Specimen Narrative Performed At EXAMINATION:CT HEAD WO CONTRAST [facility] CLINICAL HISTORY:head injury COMPARISON:None. TECHNIQUE: CT imaging was performed with iterative reconstruction technique and/or automated exposure control to reduce radiation dose. Findings: No intracranial hemorrhage, acute transcortical ischemia, extra-axial fluid collections or parenchymal mass lesions. No skull fractures or aggressive bony lesions. Mild to moderate chronic ischemic small vessel white matter changes. Chronic lacunar insult in the right thalamus. Partial opacification of the left maxillary sinus. Mastoid air cells are clear. IMPRESSION: No acute intracranial abnormalities. [facility]-[id number] Procedure Note Interface, Radiology Results Incoming - 10/02/2018 2:50 PM SALES DESIGNER EXAMINATION: CT HEAD WO CONTRAST CLINICAL HISTORY: head injury COMPARISON: None. TECHNIQUE: CT imaging was performed with iterative reconstruction technique and/or automated exposure control to reduce radiation dose. Findings: No intracranial hemorrhage, acute transcortical ischemia, extra-axial fluid collections or parenchymal mass lesions. No skull fractures or aggressive bony lesions. Mild to moderate chronic ischemic small vessel white matter changes. Chronic lacunar insult in the right thalamus. Partial opacification of the left maxillary sinus. Mastoid air cells are clear. IMPRESSION: No acute intracranial abnormalities. [facility]-[id number] Performing Organization Address City/[facility]/Zipcode Phone Number [facility] [address] [place] [address] * Creatine kinase, total (CPK) (10/02/2018 2:28 PM SALES DESIGNER) Creatine kinase 60 39 - 308 U/L [facility] Specimen Plasma specimen Performing Organization Address [facility] Phone Number [facility] DEPARTMENT OF [address] [place] [address] [place] [address] PATHOLOGY AND GENOMIC MEDICINE [address] [place] [address] [facility] * Fluzone High-Dose PF (0.5mL Syringe) (05/14/2018 9:30 AM CDT) * Pneumococcal polysaccharide vaccine 23-valent greater than or equal to 2yo subcutaneous/IM (05/14/2018 9:30 AM CDT) * Beta-2 microglobulin (05/12/2018 10:23 AM CDT) Beta-2 4.46 (H) < OR=2.51 mg/L [facility] microglobulin [facility]-JESSIKA ING II Specimen Blood Narrative Performed At FASTING:YES [facility] FASTING: YES Resulting Agency Comment Performing Organization Information: Site ID: [id number] Name: [facility] Address: [address] [place] [id number] Director: Dr. Hilario Ye Performing Organization Address [facility] Phone Number [facility] [address] [facility] [place] [address] II after 03/03/2018 Insurance Type Payer Benefit Subscriber ID Effective Phone Address Plan / Dates Group HMO [employer] TEXANPLUS xxxxxxxxx [id number] [id number] resent Advance Directives Patient has advance care planning documents, and code status on file. For more i nformation, please contact: [place] [phone] [place] [address] Date Inactivated Comments Code Status Date Activated 11/07/2018 4:18 PM Full Code 11/05/2018 8:07 PM Code Status decision reached by: Patient
--- OUTSIDE RECORDS SUMMARY | 2019-03-04 12:05 | XMS REPORT | Continuity of Care Document ---
Author Author DEQ Organization DEQ Address Unknown Phone Unavailable Care Team Providers Care Special Duty Nurse Name Role Phone [facility] [email or web address] Unavailable Unavailable Problems Problem Status Onset Date Classification Date Reported Comments Source 1ST NIGHT - 11834 Active 12/14/2018 [facility] DIZZINESS Active 09/18/2015 [facility] TIA Resolved 02/28/2015 Problem 12/18/2018 [facility] [place] (Confirmed) Resolved 09/18/2000 Problem 12/18/2018 [facility] IPF Active Problem 09/09/2018 Danuta Naedelm Rheumatoid arthritis of multiple sites without organ or system involvement with positive rheumatoid factor Active Problem 09/09/2018 [facility] NOS Active Diagnosis 09/09/2018 Danuta Naedelm High risk medication use Active Diagnosis 09/09/2018 Danuta Naedelm Anemia of chronic disease Active Diagnosis 09/09/2018 Danuta Najam Cervicalgia Active Diagnosis 09/09/2018 Danuta Najam Acid reflux Resolved Problem 12/18/2018 [facility] COPD Resolved Problem 12/18/2018 [facility] Hypertension Active Problem 12/18/2018 [facility] Medications Medication Details Route Status Patient Instructions Ordering Provider Order Date Source Hydroxychloroquine Sulfate 1.5 tablet with food or milk Orally Active 200 MG Orally Once a day Najam 07/08/2018 Daunta Najam Hydroxychloroquine Sulfate 1.5 tablet with food or milk Orally Active 200 MG Orally Once a day Najam 06/09/2018 Danuta Najam Hydroxychloroquine Sulfate 1.5 tablet with food or milk Orally Active 200 MG Orally Once a day Najam 01/13/2018 Danuta Naedelm meclizine 25 mg oral tablet 25 mg, PO, TID, PRN Dizziness, # 21 tab, 0 Refill(s) No Longer Active 09/19/2015 [facility] lisinopril 10 mg oral tablet 10 mg=1 tab, PO, Daily, # 30 tab, 1 Refill(s) Active 09/19/2015 [facility] Aspirin 81 MG Enteric Coated Tablet 81 mg=1 tab, PO, Daily, # 100 tab, 0 Refill(s) Active 09/19/2015 [facility] Meclizine 25 mg, 1 tab, Route: PO, Drug form: TAB, TID, Dosing Weight 79.545, kg, PRN Dizziness, Start date: 09/19/15 10:26:00, Duration: 30 day, Stop date: 10/19/15 10:25:00Notes: (Same as: Antivert) Inactive 09/19/2015 [facility] Aspirin 81 MG Enteric Coated Tablet 81 mg, 1 tab, Route: PO, Drug form: ECTAB, Daily, kg, Start date: 09/18/15 20:00:00, Duration: 30 day, Stop date: 10/18/15 9:00:00Notes: Do not crush or chew. (Same As: Ecotrin) No Longer Active 09/19/2015 [facility] ProAir HFA 1 - 2 puffs, PO, TID, # 1 ea, 0 Refill(s) Active 09/19/2015 [facility] Lisinopril 10 mg, 1 tab, Route: PO, Drug form: TAB, Daily, kg, Start date: 09/18/15 15:19:00, Duration: 30 day, Stop date: 10/18/15 9:00:00Notes: (Same as: Prinivil, Zestril) No Longer Active 09/18/2015 [facility] Zofran 4 mg, 2 mL, Route: IV, Drug form: INJ, Q8H, kg, PRN Nausea, Start date: 09/18/15 13:05:00, Duration: 30 day, Stop date: 10/18/15 13:04:00Notes: (Same as: Zofran) MEDICATION WASTE Product Size: 4 mg Product Wasted: ___ mg No Longer Active 09/18/2015 [facility] 09/01 NS 1,000 mL 1,000 mL, Rate: 75 ml/hr, Infuse over: 13.3 hr, Route: IV, Total Volume: 1,000, Start date: 09/18/15 13:04:00, Duration: 30 day, Stop date: 10/18/15 13:03:00 No Longer Active 09/18/2015 [facility] Ondansetron 4 mg, 2 mL, Route: IVP, Drug form: INJ, Q6H, kg, PRN Nausea & Vomiting, Start date: 09/18/15 12:12:00, Duration: 30 day, Stop date: 10/18/15 12:11:00Notes: (Same as: Antione) MEDICATION WASTE Product Size: 4 mg Product Wasted: ___ mg Inactive 09/18/2015 [facility] Docusate 100 mg, 1 cap, Route: PO, Drug form: CAP, BID, kg, PRN Constipation, Start date: 09/18/15 12:12:00, Duration: 30 day, Stop date: 10/18/15 12:11:00Notes: (Same as: Colace) (Do Not Crush) No Longer Active 09/18/2015 [facility] Acetaminophen 650 mg, 2 tab, Route: PO, Drug form: TAB, Q4H, kg, PRN Pain 1-3/Temp > 100.4 F, Start date: 09/18/15 12:12:00, Duration: 30 day, Stop date: 10/18/15 12:11:00Notes: Do not exceed 4 gm/day. (Same as: Tylenol) No Longer Active 09/18/2015 [facility] Protonix 40 mg, Route: IVP, ONCE, kg, Priority: STAT, Start date: 09/18/15 12:11:00, Stop date: 09/18/15 12:11:00 Inactive 09/18/2015 [facility] Antivert 50 mg, Route: PO, Drug form: TAB, ONCE, kg, Priority: STAT, Start date: 09/18/15 8:49:00, Stop date: 09/18/15 8:49:00 Inactive 09/18/2015 [facility] Sodium Chloride 0.154 MEQ/ML Injectable Solution 500 mL, 500 ml/hr, Infuse Over: 1 Hour, Route: IV, ONCE, Priority: STAT, kg, Start date: 09/18/15 6:49:00, Duration: 1 doses or times, Stop date: 09/18/15 6:49:00 Inactive 09/18/2015 [facility] Saline Flush 0.9% 10 mL, Route: IVP, Drug Form: INJ, kg, PRN, PRN Line Flush, Start date: 09/18/15 6:49:00, Duration: 30 day, Stop date: 10/18/15 6:48:00Notes: (Same as: BD Posiflush) No Longer Active 09/18/2015 [facility] Multivitamin Adult not defined Orally Active - [...] Najam sulfa drugs Assertion Drug allergy Active [facility] Immunizations No Data Provided for This Section Results Order Name Results Value Reference Range Date Interpretation Comments Source CARDIAC ENZYMES Troponin-I <0.02 0.00 - 0.40 09/19/2015 [facility] CARDIAC ENZYMES CK MB <0.5 0.5 - 3.6 09/19/2015 [facility] CARDIAC ENZYMES Total CK 40 12 - 191 09/19/2015 [facility] CARDIAC ENZYMES CK MB Index <1.2 0.0 - 2.5 09/19/2015 [facility] CHEM PANEL Creatinine Lvl 1.02 0.50 - 1.40 09/19/2015 [facility] CHEM PANEL eGFR 71 09/19/2015 Result Comment: [...] should be multiplied by the estimated BMI. [facility] CHEM PANEL Sodium Lvl 140 135 - 145 09/19/2015 [facility] CHEM PANEL Chloride Lvl 105 95 - 109 09/19/2015 [facility] CHEM PANEL Potassium Lvl 3.5 3.5 - 5.1 09/19/2015 [facility] CHEM PANEL Calcium Lvl 8.3 8.5 - 10.5 09/19/2015 [facility] CHEM PANEL CO2 30 24 - 32 09/19/2015 [facility] CHEM PANEL Glucose Lvl 111 70 - 99 09/19/2015 [facility] CHEM PANEL BUN 19 7 - 22 09/19/2015 [facility] CHEM PANEL AGAP 8.5 10.0 - 20.0 09/19/2015 [facility] HEMATOLOGY Platelet 236 133 - 450 09/19/2015 [facility] HEMATOLOGY MPV 8.0 7.4 - 10.4 09/19/2015 [facility] HEMATOLOGY RBC 3.77 4.70 - 6.10 09/19/2015 [facility] Hgb 12.6 14.0 - 18.0 09/19/2015 [facility] HEMATOLOGY WBC 5.0 3.7 - 10.4 09/19/2015 [facility] MCH 33.3 27.0 - 31.0 09/19/2015 [facility] Hct 37.1 42.0 - 54.0 09/19/2015 [facility] MCV 98.4 80.0 - 94.0 09/19/2015 [facility] MCHC 33.8 32.0 - 36.0 09/19/2015 [facility] HEMATOLOGY RDW 13.2 11.5 - 14.5 09/19/2015 [facility] HEMATOLOGY Eosinophils # 0.1 0.0 - 0.5 09/19/2015 [facility] HEMATOLOGY Monocytes # 0.5 0.0 - 0.8 09/19/2015 [facility] HEMATOLOGY Segs 54.7 45.0 - 75.0 09/19/2015 [facility] HEMATOLOGY Monocytes 10.4 2.0 - 12.0 09/19/2015 [facility] HEMATOLOGY Basophils 0.5 0.0 - 1.0 09/19/2015 [facility] HEMATOLOGY Eosinophils 2.2 0.0 - 4.0 09/19/2015 [facility] HEMATOLOGY Lymphocytes 32.2 20.0 - 40.0 09/19/2015 [facility] HEMATOLOGY Segs-Bands # 2.8 1.5 - 8.1 09/19/2015 [facility] HEMATOLOGY Lymphocytes # 1.6 1.0 - 5.5 09/19/2015 [facility] LIPIDS CHD Risk 4.53 4.00 - 7.30 09/19/2015 [facility] LIPIDS VLDL 28 09/19/2015 [facility] LIPIDS LDL (Calculated) 85 <=99 mg/dL 09/19/2015 [facility] LIPIDS Trig 138 <=149 mg/dL 09/19/2015 [facility] LIPIDS HDL 32 >=61 mg/dL 09/19/2015 [facility] LIPIDS Chol 145 <=199 mg/dL 09/19/2015 [facility] CARDIAC ENZYMES Troponin-I <0.02 0.00 - 0.40 09/18/2015 [facility] CARDIAC ENZYMES CK MB <0.5 0.5 - 3.6 09/18/2015 [facility] CARDIAC ENZYMES Total CK 39 12 - 191 09/18/2015 [facility] CARDIAC ENZYMES CK MB Index <1.3 0.0 - 2.5 09/18/2015 [facility] SPECIAL CHEMISTRY Hgb A1C 5.6 <=5.6 % 09/18/2015 [facility] ANEMIA STUDY Vitamin B12 Lvl 690 254 - 1320 09/18/2015 [facility] CARDIAC ENZYMES CK-MB INDEX 18.6 0.0 - 2.5 09/18/2015 [facility] CARDIAC ENZYMES Troponin-I <0.02 0.00 - 0.40 09/18/2015 [facility] CARDIAC ENZYMES Total CK <7 12 - 191 09/18/2015 [facility] CARDIAC ENZYMES CK MB 1.3 0.5 - 3.6 09/18/2015 [facility] CHEM PANEL Magnesium Lvl 1.9 1.8 - 2.4 09/18/2015 [facility] URINE AND STOOL UA Urobilinogen <=1.0 mg/dL 0.1 - 1.0 09/18/2015 [facility] URINE AND STOOL UA Turbidity Slight *ABN* (09/18/15 8:44 AM) Clear 09/18/2015 [facility] URINE AND STOOL UA Spec Grav 1.011 <=1.030 09/18/2015 [facility] URINE AND STOOL UA Protein Negative mg/dL Negative mg/dL 09/18/2015 [facility] URINE AND STOOL UA Ketones Negative mg/dL Negative mg/dL 09/18/2015 [facility] URINE AND STOOL UA Glucose Negative mg/dL Negative mg/dL 09/18/2015 [facility] URINE AND STOOL UA Blood Negative (09/18/15 8:44 AM) Negative 09/18/2015 [facility] URINE AND STOOL UA Bili Negative *NA* (09/18/15 8:44 AM) Negative 09/18/2015 [facility] URINE AND STOOL UA Nitrite Negative (09/18/15 8:44 AM) Negative 09/18/2015 [facility] URINE AND STOOL UA Leuk Est Negative (09/18/15 8:44 AM) Negative 09/18/2015 [facility] URINE AND STOOL UA WBC 1 0 - 5 09/18/2015 [facility] URINE AND STOOL UA RBC 2 0 - 2 09/18/2015 [facility] URINE AND STOOL UA Mucus Few /LPF None Seen /LPF 09/18/2015 [facility] URINE AND STOOL UA Sq Epi None Seen 09/18/2015 [facility] URINE AND STOOL UA Color Ltyellow 09/18/2015 [facility] URINE AND STOOL UA pH >=9.0 *ABN* (09/18/15 8:44 AM) 5.0 - 8.0 09/18/2015 [facility] CARDIAC ENZYMES BNP 46 <=100 pg/mL 09/18/2015 [facility] CHEM PANEL eGFR 86 09/18/2015 Result Comment: [...] should be multiplied by the estimated BMI. [facility] CHEM PANEL Bili Total 0.7 0.2 - [...] HEMATOLOGY INR 1.05 0.85 - 1.17 09/18/2015 [facility] PT 14.0 12.0 - 14.7 09/18/2015 [facility] MCH 32.9 27.0 - 31.0 09/18/2015 [facility] WBC 8.2 3.7 - 10.4 09/18/2015 [facility] RBC 4.23 4.70 - 6.10 09/18/2015 [facility] MCV 98.1 80.0 - 94.0 09/18/2015 [facility] Hgb 13.9 14.0 - 18.0 09/18/2015 [facility] Hct 41.5 42.0 - 54.0 09/18/2015 [facility] MCHC 33.5 32.0 - 36.0 09/18/2015 [facility] RDW 12.9 11.5 - 14.5 09/18/2015 [facility] Platelet 269 133 - 450 09/18/2015 [facility] MPV 7.7 7.4 - 10.4 09/18/2015 [facility] Pathology Reports No Data Provided for This [...] in the left maxillary sinus. SL:13 09/19/2015 [facility] Carotid artery Doppler bilat CAROTID ARTERY DOPPLER [...] low, or Variable undetectable SL: 12 09/18/2015 [facility] Brain wo contrast CT Examination: CT scan [...] No acute intracranial abnormality. SL: 16 09/18/2015 [facility] Chest 1view DX Chest one view: COMPARISON: [...] project over the patient's chest. SL:13 09/18/2015 [facility] Consultation Notes No Data Provided for This [...] Danuta Naedelm Systolic (mm Hg) 151 09/19/2015 [facility] Diastolic (mm Hg) 74 09/19/2015 [facility] Respitory Rate 18 09/19/2015 [facility] Heart Rate 75 09/19/2015 [facility] Temperature Oral (F) 98.3 F 09/19/2015 [facility] Respitory Rate 18 09/19/2015 [facility] Temperature Oral (F) 98.6 F 09/19/2015 [facility] Heart Rate 63 09/19/2015 [facility] Respitory Rate 16 09/19/2015 [facility] Systolic (mm Hg) 124 09/19/2015 [facility] Diastolic (mm Hg) 63 09/19/2015 [facility] Heart Rate 59 09/19/2015 [facility] Temperature Oral (F) 99.2 F 09/19/2015 [facility] Systolic (mm Hg) 113 09/19/2015 [facility] Diastolic (mm Hg) 58 09/19/2015 [facility] Weight 79.545 09/18/2015 [facility] BMI Calculated 25.9 09/18/2015 [facility] Height 175.26 cm 09/18/2015 [facility] Encounters Location Location Details Encounter Type Encounter Number Reason For Visit Attending Provider ADM Date DC Date Status Source [facility] OBS Observation Patient [id number] Kishor Aguila 09/18/2015 09/19/2015 [facility] [id number] Lolita Panda 12/22/2016 12/23/2016 [facility] [id number] Nickie Livingston 12/16/2018 12/16/2018 [facility] Procedures Procedure Code Date Perfomer Comments Source Appendectomy [id number] [facility] Excision of segment of right middle lobe [id number] [facility] Appendectomy [id number] [facility] Excision of segment of right middle lobe [id number] [facility] Assessment and Plan Assessment and Plan Date [...] in the care of your patient. 09/19/2015 [facility] Plan of Care No Data Provided for This Section Social History Social History Date Source Social History TypeResponse Alcohol Never Smoking Status Never smoker; Exposure to Tobacco Smoke None; Cigarette Smoking Last 365 Days No; Reg Smoking Cessation Counseling No entered on: 09/18/15 09/18/2015 [facility] Social History TypeResponse Alcohol Never Smoking Status Never smoker; Exposure to Tobacco Smoke None; Cigarette Smoking Last 365 Days No; Reg Smoking Cessation Counseling No 09/18/2015 PAUL Whitman Family History No Data Provided for This Section Advance Directives No Data Provided for This Section Functional Status No Data Provided for This Section
[2019-03-04 12:11] LABS: BASOPHILS % 0.2 % (0.0-1.0); EOSINOPHILS % 0.4 % (0.0-6.0); HEMATOCRIT 32.7 % (38.2-49.6); HEMOGLOBIN 10.9 g/dL (14.0-18.0); LYMPHOCYTES # (AUTO) 1.2 (1.0-3.2); LYMPHOCYTES % 13.3 % (18.0-39.1); MEAN CORPUSCULAR HEMOGLOBIN 32.9 pg (28-32); MEAN CORPUSCULAR HGB CONC 33.3 g/dL (31-35); MEAN CORPUSCULAR VOLUME 98.8 fL (81-99); MONOCYTES # (AUTO) 0.6 (0.2-0.8); MONOCYTES % 6.1 % (4.4-11.3); NEUTROPHILS # (AUTO) 7.4 (2.1-6.9); NEUTROPHILS % 79.7 % (38.7-80.0); PLATELET COUNT 238 x10e3/uL (140-360); RED BLOOD COUNT 3.31 x10e6/uL (4.3-5.7); RED CELL DISTRIBUTION WIDTH 12.8 % (11.7-14.4)
[2019-03-04] MEDS ORDERED: HYDROMORPHONE 2MG/ML 2 MG/ML ML ONE (12:12)
--- NOTE | 2019-03-04 12:45 | NUR ---
recieved to aaox3 no distress noted, updated on poc voiced understanding, continuous bladder irrigation to 24f patel with yellow urine noted, denies pain at this time, call light in reach will continue to monitor
[2019-03-04 12:48] VITALS: BP 123/60
[2019-03-04 12:55] LABS: ANION GAP 14.8 mmol/L (8-16); BLOOD UREA NITROGEN 17 mg/dL (7-26); BUN/CREATININE RATIO 20 (6-25); CALCIUM 8.1 mg/dL (8.4-10.2); CARBON DIOXIDE 20 mmol/L (22-29); CHLORIDE 110 mmol/L (98-107); CREATININE, SERUM 0.86 mg/dL (0.72-1.25); EST GLOMERULAR FILTRATION RATE > 60 ML/MIN (60-); GLUCOSE 94 mg/dL (74-118); POTASSIUM 3.8 mmol/L (3.5-5.1); SODIUM 141 mmol/L (136-145)
[2019-03-04] MEDS: PHENAZOPYRIDINE HCL 100 MG TAB PO SCH ×2 (13:00→17:59)
[2019-03-04 13:47] VITALS: BP 123/60
[2019-03-04] MEDS ORDERED: FLOMAX0.4 MG PO (13:59)
[2019-03-04] MEDS ORDERED: ALBUTEROL INH (13:59)
[2019-03-04] MEDS: D5.45%NS/KCL 20MEQ 1,000 ML IV SCH ×2 (14:45→22:48)
[2019-03-04] MEDS ORDERED: ALBUTEROL NEB SCH (15:00)
[2019-03-04] MEDS ORDERED: ALBUTEROL SULFATE HFA 8GM INHALATION AEROSOL INH PRN (15:15)
[2019-03-04 16:22] VITALS: BP 135/61
[2019-03-04] MEDS ORDERED: PROPOFOL IV EMULSION 10 MG/ML 20 ML VIAL ONE (17:02)
[2019-03-04] MEDS ORDERED: LIDOCAINE HCL 2% LOCAL INJ 5 ML SDV VIAL INJ ONE (17:02)
[2019-03-04] MEDS ORDERED: FUROSEMIDE INJ 10 MG/ML 4 ML VIAL ONE (17:02)
[2019-03-04] MEDS ORDERED: DEXAMETHASONE SOD PHOS INJ 4 MG/ML VIAL ONE (17:02)
[2019-03-04] MEDS ORDERED: ONDANSETRON HCL INJ 2MG/ML 2ML 2 MG/ML VIAL ONE (17:02)
[2019-03-04] MEDS ORDERED: FENTANYL CITRATE/PF 100MCG/2 ML INJ ONE (17:02)
[2019-03-04] MEDS ORDERED: ACETAMINOPHEN 1000 MG/100 ML IV ONE (17:02)
[2019-03-04] MEDS ORDERED: SEVOFLURANE INHAL SOLN 250 ML PEN BTL ONE (17:02)
[2019-03-04] MEDS: DOCUSATE SODIUM 100 MG CAP PO SCH (17:59)
[2019-03-04] MEDS ORDERED: ALBUTEROL 90 MCG INH SCH (18:00)
--- NOTE | 2019-03-04 19:04 | NUR ---
BEDSIDE REPORT GIVEN TO NIGHT RN, PT LEFT IN STABLE CONDITION, DENIES PAIN AT THIS TIME, CALL LIGHT IN REACH.
[2019-03-04] MEDS: ALBUTEROL SULF 0.083% NEB SOLN 3 ML NEB NEB SCH ×2 (19:50→23:15)
[2019-03-04 20:00] VITALS: BP 120/58
[2019-03-04 20:53] VITALS: BP 120/58
[2019-03-04] MEDS: ACETAMINOPHEN/CODEINE 300MG - 30MG TAB PO PRN (21:40)
[2019-03-04] MEDS: DONEPEZIL HCL 5 MG TAB PO SCH (21:40)
[2019-03-04] MEDS: FAMOTIDINE 20 MG TAB PO SCH (21:40)
[2019-03-04] MEDS: SIMVASTATIN 20 MG TAB PO SCH (21:40)
[2019-03-05] VITALS (7 sets, daily range): BP systolic 100–119; BP diastolic 50–58
[2019-03-05] MEDS: ACETAMINOPHEN/CODEINE 300MG - 30MG TAB PO PRN ×3 (02:02→13:44)
[2019-03-05] MEDS: ALBUTEROL SULF 0.083% NEB SOLN 3 ML NEB NEB SCH ×6 (03:20→23:30)
[2019-03-05 04:51] LABS: BASOPHILS % 0.1 % (0.0-1.0); HEMOGLOBIN 9.9 g/dL (14.0-18.0); LYMPHOCYTES # (AUTO) 0.8 (1.0-3.2); LYMPHOCYTES % 10.8 % (18.0-39.1); MEAN CORPUSCULAR HEMOGLOBIN 33.2 pg (28-32); MEAN CORPUSCULAR VOLUME 100.7 fL (81-99); MONOCYTES # (AUTO) 0.5 (0.2-0.8); MONOCYTES % 7.2 % (4.4-11.3); NEUTROPHILS # (AUTO) 5.7 (2.1-6.9); NEUTROPHILS % 81.6 % (38.7-80.0); PLATELET COUNT 238 x10e3/uL (140-360); RED BLOOD COUNT 2.98 x10e6/uL (4.3-5.7); RED CELL DISTRIBUTION WIDTH 12.8 % (11.7-14.4)
[2019-03-05 05:24] LABS: ANION GAP 12.4 mmol/L (8-16); BLOOD UREA NITROGEN 14 mg/dL (7-26); BUN/CREATININE RATIO 16 (6-25); CALCIUM 8.2 mg/dL (8.4-10.2); CARBON DIOXIDE 24 mmol/L (22-29); CHLORIDE 109 mmol/L (98-107); CREATININE, SERUM 0.86 mg/dL (0.72-1.25); EST GLOMERULAR FILTRATION RATE > 60 ML/MIN (60-); GLUCOSE 153 mg/dL (74-118); POTASSIUM 4.4 mmol/L (3.5-5.1); SODIUM 141 mmol/L (136-145)
[2019-03-05] MEDS: D5.45%NS/KCL 20MEQ 1,000 ML IV SCH (06:38)
--- NOTE | 2019-03-05 07:00 | NUR ---
received am report from RN. morning rounds done. pt is sleeping comfortably, no s/s of distress. granddaughter is at the bedside.
[2019-03-05] MEDS: PHENAZOPYRIDINE HCL 100 MG TAB PO SCH ×3 (08:20→16:27)
[2019-03-05] MEDS: CHOLECALCIFEROL 1,000 UNIT TAB PO SCH (08:20)
[2019-03-05] MEDS: PANTOPRAZOLE SOD 40 MG TABEC PO SCH (08:20)
[2019-03-05] MEDS: TAMSULOSIN HCL 0.4 MG CAP PO SCH (08:20)
[2019-03-05] MEDS: DOXAZOSIN MESYLATE 2 MG TAB PO SCH (08:20)
[2019-03-05] MEDS: MULTIVITAMINS/MINERALS TAB PO SCH (08:20)
[2019-03-05] MEDS: DOCUSATE SODIUM 100 MG CAP PO SCH ×2 (08:20→16:27)
[2019-03-05] MEDS ORDERED: SIMVASTATIN 40 MG TAB PO SCH (09:00)
[2019-03-05] MEDS ORDERED: CEFTRIAXONE SOD 1 GM/NS 50 ML 50 ML IV SCH (10:00)
--- NOTE | 2019-03-05 15:17 | History and Physical ---
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 HISTORY OF PRESENT ILLNESS: The patient is a 78-year-old male with enlarged prostate. The patient has multiple chronic medical problems including previous CVA without any significant residual effect. He also has hypertension and dyslipidemia. The patient had reflux. The patient is admitted after TURP procedures. Currently, he has a David catheter in place. He is getting continuous irrigation. The patient is otherwise stable at this time. PAST MEDICAL HISTORY: Enlarged prostate, reflux, hypertension, dyslipidemia, history of CVA without any significant residual effect. 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 Appendectomy. SOCIAL HISTORY: The patient does not smoke or use alcohol. No recreational drugs. ALLERGIES: TO SULFA. HOME MEDICATIONS: The patient is on aspirin, vitamin D3, Aricept, doxazosin, multivitamin, Protonix, ranitidine, Crestor, Flomax, albuterol. PHYSICAL EXAMINATION: VITAL SIGNS: Temperature is 98, blood pressure 117/56, pulse rate is 66, respirations 18. GENERAL: The patient is not in acute distress. He is awake. HEENT: Normocephalic, atraumatic. Anicteric. NECK: Supple grossly. PULMONARY: Diminished breath sounds without any wheezing. CARDIOVASCULAR: S1, S2. Regular rate and rhythm. ABDOMEN: Soft, nondistention. David catheter in place. EXTREMITIES: No cyanosis or edema. NEUROLOGIC: No focal deficit. Moving all extremities. LABORATORY: WBC 6.9, hemoglobin 9.9, hematocrit 30, platelet is 238. Chemistry; sodium 141, potassium 4.4, chloride 109, bicarb 24, BUN is 14, creatinine 0.8, glucose is 153. IMPRESSION: 1. Status post postoperative day #1 TURP procedures secondary to urinary retention and enlarged prostate. 2. Multiple chronic baseline medical problems. PLAN: Continue with current management. Repeated lab work. Continue with irrigation. We will monitor the patient closely at this time. MD HEIDI España/JUAN C /[id number]
--- NOTE | 2019-03-05 19:49 | NUR ---
RECEIVED PATIENT AAOX3, RESTING IN BED, STABLE CONDITION. ANGEL TO CBI- ORANGE OUTPUT. NO NEEDS VOICED. DENIES PAIN. FAMILY MEMBER AT BEDSIDE. BED LOCKED AND IN LOWEST POSITION, CALL LIGHT WITHIN EASY REACH. WILL CONTINUE TO MONITOR PATIENT.
[2019-03-05] MEDS: SIMVASTATIN 20 MG TAB PO SCH (21:42)
[2019-03-05] MEDS: FAMOTIDINE 20 MG TAB PO SCH (21:42)
[2019-03-05] MEDS: DONEPEZIL HCL 5 MG TAB PO SCH (21:42)
[2019-03-06] VITALS (7 sets, daily range): BP systolic 141–163; BP diastolic 63–74
[2019-03-06] MEDS: ACETAMINOPHEN/CODEINE 300MG - 30MG TAB PO PRN (00:35)
[2019-03-06] MEDS: B&O 60MG R/S 60 MG SUPP PR PRN ×2 (02:27→16:08)
[2019-03-06] MEDS: ALBUTEROL SULF 0.083% NEB SOLN 3 ML NEB NEB SCH ×2 (03:00→07:20)
--- NOTE | 2019-03-06 03:53 | NUR ---
PATIENT CONTINUES TO COMPLAIN OF PAIN TO BLADDER, CALL PLACED TO DR. GEORGE. AWAITING CALL BACK.
[2019-03-06] MEDS ORDERED: ACETAMINOPHEN 325 MG TAB PO PRN (04:00)
[2019-03-06] MEDS ORDERED: HYDROCODONE/APAP 10MG-325MG TAB PO PRN (04:00)
[2019-03-06 05:18] LABS: BASOPHILS % 0.2 % (0.0-1.0); EOSINOPHILS # (AUTO) 0.2 (0.0-0.4); EOSINOPHILS % 2.6 % (0.0-6.0); HEMATOCRIT 32.1 % (38.2-49.6); HEMOGLOBIN 10.6 g/dL (14.0-18.0); LYMPHOCYTES # (AUTO) 1.3 (1.0-3.2); LYMPHOCYTES % 15.5 % (18.0-39.1); MEAN CORPUSCULAR HEMOGLOBIN 33.1 pg (28-32); MEAN CORPUSCULAR VOLUME 100.3 fL (81-99); MONOCYTES # (AUTO) 0.6 (0.2-0.8); MONOCYTES % 7.5 % (4.4-11.3); NEUTROPHILS # (AUTO) 6.2 (2.1-6.9); NEUTROPHILS % 73.6 % (38.7-80.0); PLATELET COUNT 252 x10e3/uL (140-360); RED CELL DISTRIBUTION WIDTH 13.1 % (11.7-14.4)
[2019-03-06 05:34] LABS: ANION GAP 11.2 mmol/L (8-16); BLOOD UREA NITROGEN 12 mg/dL (7-26); BUN/CREATININE RATIO 15 (6-25); CALCIUM 8.5 mg/dL (8.4-10.2); CARBON DIOXIDE 27 mmol/L (22-29); CHLORIDE 105 mmol/L (98-107); CREATININE, SERUM 0.81 mg/dL (0.72-1.25); EST GLOMERULAR FILTRATION RATE > 60 ML/MIN (60-); GLUCOSE 100 mg/dL (74-118); POTASSIUM 4.2 mmol/L (3.5-5.1); SODIUM 139 mmol/L (136-145)
[2019-03-06] MEDS: DOXAZOSIN MESYLATE 2 MG TAB PO SCH (08:35)
[2019-03-06] MEDS: PANTOPRAZOLE SOD 40 MG TABEC PO SCH (08:35)
[2019-03-06] MEDS: DOCUSATE SODIUM 100 MG CAP PO SCH ×2 (08:35→16:08)
[2019-03-06] MEDS: MULTIVITAMINS/MINERALS TAB PO SCH (08:36)
[2019-03-06] MEDS: PHENAZOPYRIDINE HCL 100 MG TAB PO SCH ×3 (08:36→16:08)
[2019-03-06] MEDS: CHOLECALCIFEROL 1,000 UNIT TAB PO SCH (08:36)
[2019-03-06] MEDS: TAMSULOSIN HCL 0.4 MG CAP PO SCH (08:36)
[2019-03-06] MEDS ORDERED: ALBUTEROL/IPRATROPIUM 3 ML NEB NEB PRN (09:30)
[2019-03-06] MEDS: TRAMADOL HCL 50 MG TAB PO PRN ×2 (11:10→18:02)
--- NOTE | 2019-03-06 12:30 | NUR ---
David catheter was discontinued at this time. Minimal amount of blood noted at time of removal. Pt is aox2-3, Pt can be confused at times.
[2019-03-06] MEDS: ALBUTEROL/IPRATROPIUM 3 ML NEB NEB SCH ×3 (13:45→23:10)
--- NOTE | 2019-03-06 18:00 | NUR ---
Pt in bed. Aox2-3, can be confused at times. Serial urine has been started and has become hematuria at this time. Denies any pain to abdomen. Family at bedside and bed alarm in place.
--- NOTE | 2019-03-06 19:06 | NUR ---
Beside report walking round complete. Pt A&O and in no apparent distress. Pt family at bedside. All safety measures ensured and pt call caraballo near. Pt encouraged to use call caraballo for assistance.
--- NOTE | 2019-03-06 20:25 | NUR ---
Pt encouraged to drinks plenty of fluids to help with urination. Pt verbalized understanding.
[2019-03-06] MEDS: FAMOTIDINE 20 MG TAB PO SCH (20:47)
[2019-03-06] MEDS: SIMVASTATIN 20 MG TAB PO SCH (20:47)
[2019-03-06] MEDS: DONEPEZIL HCL 5 MG TAB PO SCH (20:47)
[2019-03-06] MEDS: ONDANSETRON HCL 4 MG ORAL DISINTEGRATING TAB PO PRN (21:57)
--- NOTE | 2019-03-06 21:59 | NUR ---
Pt had episode of nausea and vomiting. Pt unable to keep down food previously eaten and water. Pt given Zofran 4mg ODT. No other symptoms or complaints present. Will continue to monitor pt.
--- NOTE | 2019-03-06 22:35 | NUR ---
Pt still having hematuria. Serial urine continued. Pt continued to be encouraged to drink water.
[2019-03-07] VITALS: BP 144/64
[2019-03-07] MEDS: TRAMADOL HCL 50 MG TAB PO PRN (03:53)
--- NOTE | 2019-03-07 03:55 | NUR ---
Pt c/o severe left shoulder pain. Pt son concerned that shoulder is dislocated or has pulled muscle. Son states that pts shoulder pain was not this bad before surgery. Informed him that I will notify MD when he rounds. Pt given Tramadol 50mg po and comfort measures given for shoulder pain.
[2019-03-07 04:00] VITALS: BP 130/63
[2019-03-07 06:31] LABS: ANION GAP 10.7 mmol/L (8-16); BLOOD UREA NITROGEN 10 mg/dL (7-26); BUN/CREATININE RATIO 13 (6-25); CALCIUM 8.4 mg/dL (8.4-10.2); CARBON DIOXIDE 26 mmol/L (22-29); CHLORIDE 92 mmol/L (98-107); EST GLOMERULAR FILTRATION RATE > 60 ML/MIN (60-); GLUCOSE 95 mg/dL (74-118); POTASSIUM 3.7 mmol/L (3.5-5.1); SODIUM 125 mmol/L (136-145)
[2019-03-07] MEDS: ALBUTEROL/IPRATROPIUM 3 ML NEB NEB SCH ×2 (07:00→15:06)
--- NOTE | 2019-03-07 07:00 | NUR ---
received am report from RN, morning rounds done. pt is sleeping, no s/s of distress. son is at the bedside.
[2019-03-07 08:04] VITALS: BP 131/62
[2019-03-07 08:43] LABS: ANION GAP 15.7 mmol/L (8-16); BLOOD UREA NITROGEN 11 mg/dL (7-26); BUN/CREATININE RATIO 11 (6-25); CARBON DIOXIDE 23 mmol/L (22-29); CHLORIDE 89 mmol/L (98-107); CREATININE, SERUM 0.96 mg/dL (0.72-1.25); EST GLOMERULAR FILTRATION RATE > 60 ML/MIN (60-); GLUCOSE 84 mg/dL (74-118); POTASSIUM 3.7 mmol/L (3.5-5.1); SODIUM 124 mmol/L (136-145)
[2019-03-07 08:45] VITALS: BP 131/62
[2019-03-07] MEDS: MULTIVITAMINS/MINERALS TAB PO SCH (08:45)
[2019-03-07] MEDS: PHENAZOPYRIDINE HCL 100 MG TAB PO SCH ×2 (08:45→12:30)
[2019-03-07] MEDS: CHOLECALCIFEROL 1,000 UNIT TAB PO SCH (08:45)
[2019-03-07] MEDS: PANTOPRAZOLE SOD 40 MG TABEC PO SCH (08:45)
[2019-03-07] MEDS: TAMSULOSIN HCL 0.4 MG CAP PO SCH (08:45)
[2019-03-07] MEDS: DOXAZOSIN MESYLATE 2 MG TAB PO SCH (08:45)
[2019-03-07] MEDS: DOCUSATE SODIUM 100 MG CAP PO SCH (08:45)
[2019-03-07 11:50] VITALS: BP 149/65
--- NOTE | 2019-03-07 13:37 | NUR ---
IMM EXPLAINED TO PT, SIGNED BY PT AND PLACED IN CHART COPY TO PT IN CARE TRANSITIONS FOLDER
[2019-03-07] MEDS ORDERED: SODIUM CHLORIDE 1 GM TAB PO SCH (13:45)
--- NOTE | 2019-03-07 15:00 | NUR ---
Dr. Castro (covering for Dr. Miller) is at the bedside assessing pt. informed DR that if urine stays clear today, Dr. Ramirez is ok to clear the pt for discharge. Pt received 2g Sodium chloride tablets, after assessing the pt Dr. Castro said it was ok to discharge the pt. Paged Dr. Ramirez and informed him that the urine is clear, yellow and the Dr. castro assessed the patient and said it was ok to discharge the patient. Dr. Ramirez cleared pt for discharge with orders to continue all home meds except aspirin. the pt may continue aspirin next thursday (03/14/19).
--- NOTE | 2019-03-07 15:09 | NUR ---
last 2 urine collections have been clear, yellow. no hematuria. paged Dr. Ramirez to give update.
[2019-03-07 15:45] VITALS: BP 135/59
[2019-03-07] MEDS: ONDANSETRON HCL 4 MG ORAL DISINTEGRATING TAB PO PRN (15:56)
--- NOTE | 2019-03-07 17:26 | Progress Note ---
DATE: 03/07/2019 Medicine Progress Note SUBJECTIVE: The patient is status post TURP procedure. He is scheduled to be going home today, but his sodium was found to be relatively low, repeated was found to be 124. Family is insisting on being discharged today. OBJECTIVE: VITAL SIGNS: Temperature is 97.5, pulse 81, respiratory rate is 20, blood pressure 129/65, and pulse ox is 98% on 2 L nasal cannula. GENERAL: Not in acute distress. Alert and oriented x3. Cooperative on examination. HEENT: Head is normocephalic and atraumatic. Eyes; pupils are equal, round, and reactive to light bilaterally. Extraocular movements are intact bilaterally. Throat, no evidence of erythema or exudates in the posterior pharynx. Has poor dentition. NECK: Supple. Good range of motion. PULMONARY: Clear to auscultation bilaterally. No wheezing, no rales, no rhonchi, no crackles appreciated. CARDIOVASCULAR: Positive S1, S2. No murmurs, rubs, or gallops appreciated. ABDOMEN: Soft, nondistended, and nontender to palpation. Bowel sounds present. MUSCULOSKELETAL: Strength is 5/5 throughout. No evidence of any muscle deficits on examination. No weakness appreciated. NEUROLOGICAL: Cranial nerves 2 through 12 grossly intact. No evidence of any neurological deficits on exam. SKIN: Intact. Warm to touch. Good cap refill. PSYCHIATRIC: Normal affect and mood. EXTREMITIES: No edema. Good range of motion throughout. LABORATORY DATA: Lab findings show , hematocrit is 32, and platelets are 252. Sodium yesterday 139, now 125, repeat to make sure was 124; potassium was 3.7; chloride is 89; bicarbonate 23; anion gap of 15; BUN of 11; creatinine of 0.96; glucose is 84, calcium is 9. MICROBIOLOGY: None. IMAGING STUDIES: None. IMPRESSION: 1. Status post TURP. 2. Hyponatremia secondary to TURP procedure, on increased fluids. 3. History of hypertension. 4. History of cerebrovascular accident in the past. PLAN: At this time, he is being followed by Urology. His urine seems to have been clearing now. Await final recommendations and discharge planning by Urology. His sodium did trend down to 124 overnight. Repeat sodium still shows to have a very low level. I did start him on salt tabs 2 g p.o. b.i.d. x2 doses and we will repeat labs in the morning. He is not ready for discharge considering that sodium is now much less at 124. This could be rapidly corrected due to the fact that it is less than 48 hours. So, we will monitor this very closely, get a.m. labs. MD MARIE Merida/JUAN C /[id number]
--- NOTE | 2019-04-16 10:33 | Operative Report ---
DATE OF PROCEDURE: 03/04/2019 SURGEON: Ferny Ramirez MD PREOPERATIVE DIAGNOSES: 1. Obstructive benign prostatic hyperplasia. 2. Incomplete bladder emptying. POSTOPERATIVE DIAGNOSES: 1. Obstructive benign prostatic hyperplasia. 2. Bladder neck contracture and obstruction. 3. Incomplete bladder emptying. OPERATION PERFORMED: 1. Cystourethroscopy with bilateral ureteral catheterization and retrograde ureteropyelography (separate procedure performed for the incomplete bladder emptying). 2. Interpretation of retrograde ureteropyelography. 3. Supervision of fluoroscopy, no radiologist present. 4. Cystourethroscopy with transurethral resection of the bladder neck (separate procedure performed for bladder neck contracture). 5. Cystourethroscopy with transurethral resection of the prostate utilizing the plasma button electrode (separate staged procedure for the obstructive BPH with planned uroflowmetries during the first postoperative 90 days). ANESTHESIA: General. COMPLICATIONS: None. CLINICAL SUMMARY: Josh Sargent is a 78-year-old man with obstructive BPH and incomplete bladder emptying. He is brought for the above procedures. He is aware of the risks of bleeding, infection, injury to adjacent structures, need for additional procedures, and elected to proceed. OPERATIVE PROCEDURE IN DETAIL: Informed consent was verified. Josh Sargent was properly identified, taken to the operating room, placed on the cystoscopy table in supine position. Anesthesia was uneventfully begun. The patient was then carefully and gently repositioned in the dorsal lithotomy position with all pressure points well padded. His genitalia were prepared and draped in usual sterile fashion. A 22.5-Bahamian cystoscope sheath with a visual obturator in place was atraumatically inserted into the patient's urethra, it was guided down the unremarkable distal urethra through normal sphincteric region into the patient's prostate bed, which was significant for regrowth of prostatic tissue at the apical region as well tissue at the apical region both of these causing visual obstruction. There was also bladder neck contracture, went to the patient's bladder, where grade 2 trabeculations were noted, but no tumors, no stones, and no diverticula. Normally positioned configured ureteral orifices were identified. An 8-Bahamian catheter was used to cannulate each ureter and retrograde ureteropyelography was performed. Interpretation of retrograde ureteropyelography, contrast was instilled in retrograde fashion bilaterally. There were no tumors, no stones, and no diverticula. Unobstructed drainage was observed bilaterally fluoroscopically. The resectoscope sheath was atraumatically placed and then proceeded utilizing the plasma button electrode to resect the patient's bladder neck. Once this was performed down to the surgical capsule, the patient had a wide open bladder neck. Care was taken to avoid injuring the ureteral orifice bilaterally. We then carried out our transurethral resection from the bladder neck to the to maneuver past the verumontanum and down the surgical capsule. Pinpoint electrocautery was utilized to achieve hemostasis. The resectoscope was then withdrawn of continuous flow. David catheter was placed. It was irrigated to and fro to ensure it worked properly. It was placed on continuous irrigation with completely clear efflux. Belladonna and opium suppository were placed revealing a large prostate that is smooth, non-fluctuant without any nodules. The patient was then uneventfully reversed from anesthesia and taken to recovery room in stable condition. There were no complications to the procedure. He tolerated the procedure well. Explicit postop instructions were given. We will proceed with routine postoperative care and lifelong urological followup. MD MELANIE Joyner/JUAN C /[id number]
== END 2019-03-07 16:02 | disposition home or self-care (01) | DRG 713 ==
LOC: OR 08:48 → PACU V 11:49 → MED/SURG 12:31
PROVIDERS: ADMIT Internal Medicine; ATTEND Internal Medicine
PROC: 0T788DZ Dilation of Bilateral Ureters with Intraluminal Device, Via Natural or Artificial Opening Endoscopic (ICD-10-PCS; 2019-03-04)
PROC: BT141ZZ Fluoroscopy of Kidneys, Ureters and Bladder using Low Osmolar Contrast (ICD-10-PCS; 2019-03-04)
PROC: 0VB08ZZ Excision of Prostate, Via Natural or Artificial Opening Endoscopic (ICD-10-PCS; principal; 2019-03-04 11:00)
PROC: 0TBC8ZZ Excision of Bladder Neck, Via Natural or Artificial Opening Endoscopic (ICD-10-PCS; 2019-03-04 11:00)
DX: N40.1 Benign prostatic hyperplasia with lower urinary tract symptoms (principal); N13.8 Other obstructive and reflux uropathy; N39.0 Urinary tract infection, site not specified; E87.1 Hypo-osmolality and hyponatremia; I10 Essential (primary) hypertension; R33.8 Other retention of urine; N32.0 Bladder-neck obstruction; Z87.440 Personal history of urinary (tract) infections; Z86.73 Personal history of transient ischemic attack (TIA), and cerebral infarction without residual deficits; Z88.2 Allergy status to sulfonamides; R41.0 Disorientation, unspecified; K21.9 Gastro-esophageal reflux disease without esophagitis
CPT/HCPCS: 36415; 71046; 74420; 80048; 83735; 85025; 93005; 94640; J0696; J1100; J1580; J1940; J2001; J2270; J2405; J3010; J7030; Q0162